=== PATIENT | male | born 1990 | race African-American/Black ===

== ENCOUNTER 2016-10-08 13:29 | Emergency (ER) | payer MEDICAID ==
--- NOTE | 2016-10-08 13:47 | ER Document Report ---
ED Medical Screen (RME) - General Chief Complaint: Abdominal Pain Stated Complaint: ABDOMINAL PAIN Time Seen by Provider: 10/08/16 13:45 Notes: Patient states that he has 2 weeks of continuous bilateral flank and abdominal pains. He states he is having blood in his urine, blood in his vomit, and blood in his stool. He states that he is concerned this may be secondary to drinking too much alcohol. He states he has been drinking a pint of vodka a day for the last 7 years. Denies any chronic medical problems or previous surgeries. TRAVEL OUTSIDE OF THE [place] IN LAST 30 DAYS: No - Related Data Allergies/Adverse Reactions: No Known Allergies Allergy (Verified 10/08/16 13:34) Past Medical History Pulmonary Medical History: Reports: Hx Asthma Renal/ Medical History: Denies: Hx Peritoneal Dialysis - Immunizations Hx Diphtheria, Pertussis, Tetanus Vaccination: Yes
[2016-10-08 14:42] LABS: ABSOLUTE EOSINOPHILS # (AUTO) 0.1 10^3/uL (0.0-0.6); ABSOLUTE LYMPHOCYTES (AUTO) 0.8 10^3/uL (0.5-4.7); ABSOLUTE MONOCYTES (AUTO) 0.5 10^3/uL (0.1-1.4); ABSOLUTE NEUT (AUTO) 3.8 10^3/uL (1.7-8.2); BASOPHILS % (AUTO) 0.7 % (0-2); EOSINOPHILS % (AUTO) 2.5 % (0-6); HEMATOCRIT 42.2 % (37.9-51.0); HEMOGLOBIN 14.5 g/dL (13.5-17.0); HGB HCT DIFFERENCE 1.3; LYMPHOCYTES % (AUTO) 14.7 % (13-45); MEAN CORPUSCULAR HEMOGLOBIN 31.1 pg (27.0-33.4); MEAN CORPUSCULAR HGB CONC 34.4 g/dL (32.0-36.0); MEAN CORPUSCULAR VOLUME 90 fl (80-97); MONOCYTES % (AUTO) 10.1 % (3-13); RED BLOOD COUNT 4.67 10^6/uL (4.35-5.55); WHITE BLOOD COUNT 5.3 10^3/uL (4.0-10.5)
[2016-10-08] MEDS: NORMAL SALINE 1000 ML 1,000 ML IV PRN ×2 (14:44→15:09)
[2016-10-08 14:50] LABS: APPEARANCE,URINE CLEAR; BILIRUBIN,URINE NEGATIVE (NEGATIVE); GLUCOSE, URINE NEGATIVE (NEGATIVE); KETONES,URINE TRACE mg/dL (NEGATIVE); LEUKOCYTE ESTERASE,URINE NEGATIVE (NEGATIVE); NITRITE,URINE NEGATIVE (NEGATIVE); PROTEIN,URINE 30 mg/dL (NEGATIVE); URINE SPECIFIC GRAVITY 1.027
[2016-10-08] MEDS ORDERED: MORPHINE SULFATE 10 MG/ML INJ IV ONE (14:59)
[2016-10-08] MEDS ORDERED: NORMAL SALINE 1000 ML 1,000 ML IV ONE ×2 (14:59→16:52)
[2016-10-08] MEDS ORDERED: ONDANSETRON 4 MG TAB.RAPDIS PO ONE (14:59)
--- NOTE | 2016-10-08 15:01 | ER Document Report ---
ED GI/ - General Chief Complaint: Abdominal Pain Stated Complaint: ABDOMINAL PAIN Time Seen by Provider: 10/08/16 13:45 Mode of Arrival: Medic Information source: Patient Notes: 26-year-old male complaining of upper abdominal pain and thoracic back pain since he started drinking a pint of vodka daily for 2 weeks. He has been an alcoholic in the past and gone to AA. He feels nauseated and had some vomiting of blood and blood in he stool. At this time due to pain. No hx pancreatitis or surgeries. No chronic medical problems. TRAVEL OUTSIDE OF THE [place] IN LAST 30 DAYS: No - Related Data Allergies/Adverse Reactions: No Known Allergies Allergy (Verified 10/08/16 13:34) Past Medical History - General Information source: Patient - Social History Smoking Status: Current Every Day Smoker Frequency of alcohol use: Heavy - for 2 weeks Drug Abuse: None Occupation: [employer] Lives with: Family Family History: Reviewed & Not Pertinent Patient has suicidal ideation: No Patient has homicidal ideation: No Pulmonary Medical History: Reports: Hx Asthma Renal/ Medical History: Denies: Hx Peritoneal Dialysis Surgical Hx: Negative - Immunizations Hx Diphtheria, Pertussis, Tetanus Vaccination: Yes Review of Systems - Review of Systems Constitutional: No symptoms reported EENT: No symptoms reported Cardiovascular: No symptoms reported Respiratory: No symptoms reported Gastrointestinal: See HPI Genitourinary: No symptoms reported Male Genitourinary: No symptoms reported Musculoskeletal: No symptoms reported Skin: No symptoms reported Hematologic/Lymphatic: No symptoms reported Neurological/Psychological: No symptoms reported Physical Exam - Vital signs Vitals: Temp Pulse Resp BP Pulse Ox 98.3 F 89 16 124/91 H 99 10/08/16 13:34 10/08/16 13:34 10/08/16 13:34 10/08/16 13:34 10/08/16 13:34 Interpretation: Normal - General General appearance: Alert Notes: shaking due to the pain per the pt. - HEENT Head: Normocephalic, Atraumatic Eyes: Normal Conjunctiva: Normal Pupils: PERRL Mucous membranes: Dry Pharynx: Normal Neck: Supple. No: Lymphadenopathy - Respiratory Respiratory status: No respiratory distress Chest status: Nontender Breath sounds: Normal Chest palpation: Normal - Cardiovascular Rhythm: Regular Heart sounds: Normal auscultation Murmur: No - Abdominal Inspection: Normal Distension: No distension Bowel sounds: Normal Tenderness: Tender - upper abdomen, epigastric the most Organomegaly: No organomegaly. No: Hepatomegaly, Splenomegaly - Back Back: Normal, Nontender. No: Tender, CVA tenderness - Extremities General upper extremity: Normal inspection, Nontender, Normal color, Normal ROM , Normal temperature General lower extremity: Normal inspection, Nontender, Normal color, Normal ROM , Normal temperature, Normal weight bearing. No: Matthew's sign - Neurological Neuro grossly intact: Yes Cognition: Normal Orientation: AAOx4 Ester Coma Scale Eye Opening: Spontaneous [place] Coma Scale Verbal: Oriented [place] Coma Scale Motor: Obeys Commands [place] Coma Scale Total: 15 Speech: Normal Motor strength normal: LUE, RUE, LLE, RLE Sensory: Normal - Psychological Associated symptoms: Normal affect, Normal mood - Skin Skin Temperature: Warm Skin Moisture: Dry Skin Color: Normal Skin irregularity: negative: Rash Course - Re-evaluation Re-evalutation: 10/08/16 15:[address] cantu, get IV contrast CT, has pancreatitis, pain difficult to manage. Morphine 10mg only to 4/5. 10/08/16 15:33 pain down to 2/5 after dilaudid 0.5mg IV 10/08/16 16:23 CT scan is negative except for fatty infiltration of the liver I consulted with , go home with pain rx, nexium, f/u GI, no etoh. 10/08/16 16:23 drinking gingerale and eating crackers 10/08/16 16:34 no vomiting - Vital Signs Vital signs: Temp Pulse Resp BP Pulse Ox 98 F 75 16 137/89 H 98 10/08/16 15:40 10/08/16 15:40 10/08/16 15:40 10/08/16 15:40 10/08/16 15:40 - Laboratory Result Diagrams: 10/08/16 14:30 10/08/16 14:30 Laboratory results interpreted by me: 10/08/16 10/08/16 14:08 14:30 Total Bilirubin 1.9 H Direct Bilirubin 0.5 H AST 220 H Alkaline Phosphatase 146 H Lipase 892.0 H Urine Protein 30 H Urine Ketones TRACE H Urine Urobilinogen 4.0 H Discharge - Discharge Clinical Impression: Alcohol abuse, Dehydration Pancreatitis Qualifiers: Chronicity: acute Pancreatitis type: alcohol induced Acute pancreatitis complication: no infection or necrosis Qualified Code(s): K85.20 - Alcohol induced acute pancreatitis without necrosis or infection Vomiting Qualifiers: Vomiting type: unspecified Vomiting Intractability: non-intractable Nausea presence: with nausea Qualified Code(s): R11.2 - Nausea with vomiting, unspecified Abdominal pain Qualifiers: Abdominal location: upper abdomen, unspecified Qualified Code(s): R10.10 - Upper abdominal pain, unspecified Condition: Good Disposition: HOME, SELF-CARE Instructions: Abdominal Pain ([facility]), Pancreatitis ([facility]), Oral Narcotic Medication ([facility]), Antinausea Medication ([facility]), Prilosec (Acid Pump Inhibitor) ( [facility]) Additional Instructions: return to er for increased pain and vomiting despite the medication prescribed NO ALCOHOL CONSUMPTION eat frequent small meals, plenty of fluid see the parallel computing software engineer for folow up Please complete the patient satisfaction survey if you get one, and return it.. If you do not receive a survey, then you can go to the [facility] website, [email or web address] and place your comments about your very good care. Thank you very much. It was a pleasure being your medical provider today. Prescriptions: Hydrocodone Bit/Acetaminophen [Hydrocodon-Acetaminophen 5-325] 1 - 2 each PO Q4HP PRN #20 tablet PRN Reason: Promethazine HCl [Phenergan 25 mg Tablet] 25 mg PO Q4HP PRN #30 tablet PRN Reason: Esomeprazole Mag Trihydrate [Nexium] 40 mg PO DAILY #30 capsule.dr Referrals: DELORES GRIDER MD [ACTIVE STAFF] - Follow up in 3-5 days
[2016-10-08 15:05] LABS: URINE BARBITURATES SCREEN NEGATIVE; URINE METHADONE SCREEN NEGATIVE; URINE OPIATES LOW NEGATIVE; URINE PHENCYCLIDINE SCREEN NEGATIVE
[2016-10-08 15:06] LABS: ALANINE AMINOTRANSFERASE 70 U/L (21-72); ALBUMIN 4.6 g/dL (3.5-5.0); ALCOHOL 42 mg/dL (NONE DETECTED); ALKALINE PHOSPHATASE 146 U/L (38-126); ANION GAP 13 (5-19); ASPARTATE AMINO TRANSFERASE 220 U/L (17-59); BILIRUBIN,DIRECT 0.5 mg/dL (0.0-0.4); BILIRUBIN,TOTAL 1.9 mg/dL (0.2-1.3); BLOOD UREA NITROGEN 9 mg/dL (7-20); CALCIUM 9.4 mg/dL (8.4-10.2); CARBON DIOXIDE 26 mmol/L (22-30); CHLORIDE 100 mmol/L (98-107); CREATININE RESULT 0.97 mg/dL (0.52-1.25); GLUCOSE 77 mg/dL (75-110); POTASSIUM 3.9 mmol/L (3.6-5.0); SODIUM 139.4 mmol/L (137-145); TOTAL PROTEIN 8.2 g/dL (6.3-8.2)
[2016-10-08] MEDS ORDERED: HYDROMORPHONE HCL INJ/PF 2 MG/ML AMPULE IV ONE (15:18)
[2016-10-08] MEDS ORDERED: FAMOTIDINE INJ/PF 20 MG/2 ML SDV IV ONE (15:19)
--- NOTE | 2016-10-08 16:13 | RADIOLOGY REPORT (SQ) ---
EXAM DESCRIPTION: CT ABD/PELVIS WITH IV ONLY COMPLETED DATE/TIME: 10/08/2016 4:02 pm REASON FOR STUDY: pancreatitis, acute abd pain COMPARISON: None. TECHNIQUE: CT scan of the abdomen and pelvis performed using helical scanning technique with dynamic intravenous contrast injection. No oral contrast. Images reviewed with lung, soft tissue, and bone windows. Reconstructed coronal and sagittal MPR images reviewed. Delayed images for evaluation of the urinary system also acquired. All images stored on PACS. All CT scanners at this facility use dose modulation, iterative reconstruction, and/or weight based d osing when appropriate to reduce radiation dose to as low as reasonably achievable (ALARA). [facility]: Dose Right [facility]: CareDose [facility]: Dose Right [facility]: Teradose 4D [facility]: ReliSen CONTRAST TYPE AND DOSE: contrast/concentration: Isovue 370.00 mg/ml; Total Contrast Delivered: 85.0 ml; Total Saline Delivered: 69.0 ml RENAL FUNCTION: BUN 9 creatinine 0.97. RADIATION DOSE: Up-to-date CT equipment and radiation dose reduction techniques were employed. CTDIv ol: 4.0 - 4.6 mGy. DLP: 418 mGy-cm.. LIMITATIONS: None. FINDINGS: LOWER CHEST: No significant findings. No nodules or infiltrates. LIVER: Hepatomegaly, measuring 21 cm. Marked fatty infiltration. No masses. No dilated ducts. SPLEEN: Normal size. No focal lesions. PANCREAS: No masses. No significant calcifications. No adjacent inflammation or peripancreatic fluid collections. Pancreatic duct not dilated. GALLBLADDER: No identified stones by CT criteria. No inflammatory changes to suggest cholecystitis. ADRENAL GLANDS: No significant masses or asymmetry. RIGHT KIDNEY AND URETER: No solid masses. No significant calcifications. No hydronephrosis or hyd roureter. LEFT KIDNEY AND URETER: No solid masses. No significant calcifications. No hydronephrosis or hydr oureter. AORTA AND VESSELS: No aneurysm. No dissection. Renal arteries, SMA, celiac without stenosis. RETROPERITONEUM: No retroperitoneal adenopathy, hemorrhage or masses. BOWEL AND PERITONEAL CAVITY: No masses or inflammatory changes. No free fluid or peritoneal masses. APPENDIX: Normal. PELVIS: No mass. No free fluid. Normal bladder. ABDOMINAL WALL: No masses. No hernias. BONES: No significant or acute findings. OTHER: No other significant finding. IMPRESSION: HEPATOMEGALY WITH MARKED FATTY INFILTRATION OF THE LIVER. NO OTHER SIGNIFICANT OR ACUTE FINDING IN THE ABDOMEN OR PELVIS ON CT SCAN WITH IV CONTRAST. TECHNICAL DOCUMENTATION: JOB ID: [id number] Quality ID # [id number]: Final reports with documentation of one or more dose reduction techniques (e.g., Au tomated exposure control, adjustment of the mA and/or kV according to patient size, use of iterative reconstruction technique) 2010 [employer]- All Rights Reserved
[2016-10-08] MEDS ORDERED: LANSOPRAZOLE 30 MG TAB.RAP.DR PO ONE (16:23)
[2016-10-08] MEDS ORDERED: METOCLOPRAMIDE HCL INJ/PF 10 MG/2 ML SDV IV ONE (16:52)
[2016-10-08] MEDS ORDERED: METOCLOPRAMIDE HCL 10 MG TABLET PO ONE (16:57)
[2016-10-08 17:45] VITALS: BP 129/86
== END 2016-10-08 17:46 | disposition home or self-care (01) ==
LOC: ER 13:29
DX: K85.20 Alcohol induced acute pancreatitis without necrosis or infection (principal); F10.20 Alcohol dependence, uncomplicated; E86.0 Dehydration; K76.0 Fatty (change of) liver, not elsewhere classified; R10.10 Upper abdominal pain, unspecified; M54.6 Pain in thoracic spine; J45.909 Unspecified asthma, uncomplicated; F17.200 Nicotine dependence, unspecified, uncomplicated; K92.0 Hematemesis; K92.1 Melena
CPT/HCPCS: 99284; 96361; 96374; 96375; 36415; 80307 ×2; 83690; 85025; 80053; 81001; 74177; S0119; J3490; J2270; J1170; J7030; S0028

== ENCOUNTER 2016-12-03 12:31 | Emergency (ER) | payer MEDICAID ==
[2016-12-03] MEDS ORDERED: NORMAL SALINE 1000 ML 1,000 ML IV ONE (13:04)
[2016-12-03] MEDS ORDERED: PROCHLORPERAZINE EDISYLATE INJ 10 MG/2 ML VIAL IV ONE (13:04)
[2016-12-03 13:24] LABS: ALANINE AMINOTRANSFERASE 58 U/L (21-72); ALBUMIN 4.8 g/dL (3.5-5.0); ALKALINE PHOSPHATASE 118 U/L (38-126); ANION GAP 17 (5-19); ASPARTATE AMINO TRANSFERASE 175 U/L (17-59); BILIRUBIN,DIRECT 0.7 mg/dL (0.0-0.4); BILIRUBIN,TOTAL 2.2 mg/dL (0.2-1.3); BLOOD UREA NITROGEN 9 mg/dL (7-20); CARBON DIOXIDE 20 mmol/L (22-30); CHLORIDE 101 mmol/L (98-107); CREATININE RESULT 1.12 mg/dL (0.52-1.25); GLUCOSE 195 mg/dL (75-110); MAGNESIUM 1.6 mg/dL (1.6-2.3); POTASSIUM 4.1 mmol/L (3.6-5.0); SODIUM 137.8 mmol/L (137-145); TOTAL PROTEIN 8.4 g/dL (6.3-8.2)
[2016-12-03 13:28] LABS: ALCOHOL < 10 mg/dL (NONE DETECTED)
[2016-12-03 13:33] LABS: ABSOLUTE EOSINOPHILS # (AUTO) 0.1 10^3/uL (0.0-0.6); ABSOLUTE LYMPHOCYTES (AUTO) 0.6 10^3/uL (0.5-4.7); ABSOLUTE MONOCYTES (AUTO) 0.5 10^3/uL (0.1-1.4); ABSOLUTE NEUT (AUTO) 3.6 10^3/uL (1.7-8.2); BASOPHILS % (AUTO) 0.8 % (0-2); EOSINOPHILS % (AUTO) 1.5 % (0-6); HEMOGLOBIN 13.6 g/dL (13.5-17.0); HGB HCT DIFFERENCE 0.8; LYMPHOCYTES % (AUTO) 12.4 % (13-45); MEAN CORPUSCULAR HEMOGLOBIN 31.8 pg (27.0-33.4); MEAN CORPUSCULAR HGB CONC 34.1 g/dL (32.0-36.0); MEAN CORPUSCULAR VOLUME 93 fl (80-97); MONOCYTES % (AUTO) 10.6 % (3-13); RED BLOOD COUNT 4.28 10^6/uL (4.35-5.55); RED CELL DISTRIBUTION WIDTH 14.5 % (11.5-14.0); SEGMENTED NEUTROPHILS % (AUTO) 74.7 % (42-78); WHITE BLOOD COUNT 4.8 10^3/uL (4.0-10.5)
[2016-12-03 13:49] LABS: APPEARANCE,URINE CLEAR; BILIRUBIN,URINE NEGATIVE (NEGATIVE); GLUCOSE, URINE 150 mg/dL (NEGATIVE); KETONES,URINE 20 mg/dL (NEGATIVE); LEUKOCYTE ESTERASE,URINE NEGATIVE (NEGATIVE); NITRITE,URINE NEGATIVE (NEGATIVE); PROTEIN,URINE 30 mg/dL (NEGATIVE); URINE SPECIFIC GRAVITY 1.023
[2016-12-03 14:05] LABS: URINE BARBITURATES SCREEN NEGATIVE; URINE METHADONE SCREEN NEGATIVE; URINE OPIATES LOW NEGATIVE; URINE PHENCYCLIDINE SCREEN NEGATIVE
[2016-12-03] MEDS ORDERED: LEVETIRACETAM 500 MG TABLET PO ONE (14:25)
--- NOTE | 2016-12-03 14:25 | ER Document Report ---
ED Seizure - General Chief Complaint: Probable Seizure Stated Complaint: POSSIBLE SEIZURE Time Seen by Provider: 12/03/16 13:03 Mode of Arrival: Medic Information source: Patient Notes: Patient is a 26-year-old male with history of seizures, seizure medication the EMS saw at home, who presents to the ER today for seizure this morning while he was in court. Patient was witnessed to have fallen backwards, and had full body convulsions for approximately 5 minutes off and on, resting and then having another episode of seizure-like activity for approximately 2 minutes. Female friend in room was witnessed and states that the second time he was more tense than having convulsions but still had twitching of his legs. He did not have any loss of bladder function or foaming at the mouth. He did not bite his tongue. He drinks alcohol daily, 5-7 shots every day and at least a pint of alcohol on the weekends daily. He initially had a headache on arrival but on my exam states that he does not have a headache any longer. Witness states that he was "out of it" until he got to the emergency department. She states he is now at his baseline. - Related Data Allergies/Adverse Reactions: No Known Allergies Allergy (Verified 10/08/16 13:34) Past Medical History - General Information source: Patient - Social History Smoking Status: Unknown if Ever Smoked Family History: Reviewed & Not Pertinent Pulmonary Medical History: Reports: Hx Asthma Renal/ Medical History: Denies: Hx Peritoneal Dialysis - Immunizations Hx Diphtheria, Pertussis, Tetanus Vaccination: Yes Review of Systems - Review of Systems Constitutional: No symptoms reported EENT: No symptoms reported Cardiovascular: No symptoms reported Respiratory: No symptoms reported Gastrointestinal: No symptoms reported Genitourinary: No symptoms reported Male Genitourinary: No symptoms reported Musculoskeletal: No symptoms reported Skin: No symptoms reported Hematologic/Lymphatic: No symptoms reported Neurological/Psychological: See HPI Physical Exam - Notes Notes: PHYSICAL EXAMINATION: GENERAL: Appears tired, but in no acute distress. HEAD: Atraumatic, normocephalic. EYES: Pupils equal round and reactive to light, extraocular movements intact, sclera anicteric, conjunctiva are normal. ENT: ear canals without erythema or foreign body, TMs pearly ba with good bony landmarks, nares patent, oropharynx clear without exudates. Moist mucous membranes. No abrasion or lacerations to the oral mucosa or tongue NECK: Normal range of motion, supple without lymphadenopathy LUNGS: CTAB and equal. No wheezes rales or rhonchi. HEART: Regular rate and rhythm without murmurs ABDOMEN: Soft, no tenderness. No guarding, no rebound BACK: no vertebral tenderness, normal ROM GI/: no CVA tenderness EXTREMITIES: Normal range of motion, no pitting edema. No cyanosis. NEUROLOGICAL: Cranial nerves grossly intact. Normal sensory/motor exams. Good and equal strength bilaterally, Kernig and Brudzinski's signs negative, Romberg' s test normal, normal heel to lino testing PSYCH: Normal mood, normal affect. SKIN: Warm, Dry, normal turgor, no rashes or lesions noted Course - Re-evaluation Re-evalutation: 12/03/16 14:22 Patient states that he has no history of seizures, however female friend in the room states that he does and EMS saw seizure medications and his name at the house. Patient does have a psych history. Lab work is unremarkable today except for elevated bilirubin and liver enzymes, I did advise the patient stop drinking and advised him about his elevated liver enzymes which she has had before. They actually appear better than last month when he was here. He was given IV fluids here. He would like to go home at this time. - Laboratory Result Diagrams: 12/03/16 12:50 12/03/16 12:50 Laboratory results interpreted by me: 12/03/16 12/03/16 12/03/16 12:50 12:50 13:30 RBC 4.28 L RDW 14.5 H Lymphocytes % 12.4 L Carbon Dioxide 20 L Glucose 195 H Total Bilirubin 2.2 H Direct Bilirubin 0.7 H AST 175 H Total Protein 8.4 H Urine Protein 30 H Urine Glucose (UA) 150 H Urine Ketones 20 H Urine Blood SMALL H Urine Urobilinogen 2.0 H Discharge - Discharge Clinical Impression: Seizure Condition: Stable Disposition: HOME, SELF-CARE Additional Instructions: Pleast take your seizure medications, see neurology I have referred you to. Return immediately for any new or worsening symptoms. Follow up with primary care provider, call tomorrow to make followup appointment. Prescriptions: Levetiracetam [Keppra 500 mg Tablet] 500 mg PO Q12 #30 tablet Referrals: IHSAN VERA MD [Primary Care Provider] - Follow up as needed SONIYA KHAN MD [ACTIVE STAFF] - Follow up as needed
[2016-12-03 15:36] VITALS: BP 129/96
--- NOTE | 2016-12-03 16:46 | EKG REPORT ---
SEVERITY:- NORMAL ECG - SINUS RHYTHM : Confirmed by: Barbi Mandujano MD 03-Dec-2016 16:45:38
== END 2016-12-03 14:15 | disposition home or self-care (01) ==
LOC: ER 12:31
DX: G40.909 Epilepsy, unspecified, not intractable, without status epilepticus (principal)
CPT/HCPCS: 93005; 99284; 96374; 36415; 82962; 80307 ×2; 83735; 85025; 80053; 81001; 93010; J0780; J7030

== ENCOUNTER 2016-12-23 15:59 | Emergency (ER) | payer MEDICAID ==
--- NOTE | 2016-12-23 16:54 | ER Document Report ---
ED Medical Screen (RME) - General Chief Complaint: Abdominal Pain Stated Complaint: ABDOMINAL PAIN Time Seen by Provider: 12/23/16 16:53 Notes: Patient states that he was here 1 week ago for abdominal pain. He states abdominal pain has become worse. He is no vomiting and unable to eat. He denies any problems with urination or bowel movements. TRAVEL OUTSIDE OF THE [place] IN LAST 30 DAYS: No - Related Data Allergies/Adverse Reactions: No Known Allergies Allergy (Verified 12/23/16 16:08) Past Medical History Pulmonary Medical History: Reports: Hx Asthma Renal/ Medical History: Denies: Hx Peritoneal Dialysis - Immunizations Hx Diphtheria, Pertussis, Tetanus Vaccination: Yes Physical Exam - Vital signs Vitals: Temp Pulse Resp BP Pulse Ox 98.5 F 75 18 130/70 H 100 12/23/16 16:05 12/23/16 16:05 12/23/16 16:05 12/23/16 16:05 12/23/16 16:05 Course - Vital Signs Vital signs: Temp Pulse Resp BP Pulse Ox 98.5 F 75 18 130/70 H 100 12/23/16 16:05 12/23/16 16:05 12/23/16 16:05 12/23/16 16:05 12/23/16 16:05
[2016-12-23] MEDS ORDERED: NORMAL SALINE 1000 ML 1,000 ML IV ONE ×2 (16:56→23:19)
[2016-12-23] MEDS ORDERED: MORPHINE SULFATE 10 MG/ML INJ IV ONE ×2 (16:56→22:02)
[2016-12-23] MEDS ORDERED: ONDANSETRON HCL INJ/PF 4 MG/2 ML SDV IV ONE (16:56)
[2016-12-23 18:13] LABS: ABSOLUTE LYMPHOCYTES (AUTO) 0.8 10^3/uL (0.5-4.7); ABSOLUTE MONOCYTES (AUTO) 0.3 10^3/uL (0.1-1.4); ABSOLUTE NEUT (AUTO) 5.2 10^3/uL (1.7-8.2); BASOPHILS % (AUTO) 0.6 % (0-2); EOSINOPHILS % (AUTO) 0.7 % (0-6); HEMATOCRIT 41.9 % (37.9-51.0); HEMOGLOBIN 14.4 g/dL (13.5-17.0); HGB HCT DIFFERENCE 1.3; LYMPHOCYTES % (AUTO) 11.8 % (13-45); MEAN CORPUSCULAR HEMOGLOBIN 31.3 pg (27.0-33.4); MEAN CORPUSCULAR HGB CONC 34.3 g/dL (32.0-36.0); MEAN CORPUSCULAR VOLUME 91 fl (80-97); MONOCYTES % (AUTO) 5.2 % (3-13); RED BLOOD COUNT 4.59 10^6/uL (4.35-5.55); RED CELL DISTRIBUTION WIDTH 13.5 % (11.5-14.0); SEGMENTED NEUTROPHILS % (AUTO) 81.7 % (42-78); WHITE BLOOD COUNT 6.4 10^3/uL (4.0-10.5)
[2016-12-23 18:29] LABS: AMORPHOUS SEDIMENT,URINE TRACE /HPF; APPEARANCE,URINE CLOUDY; BILIRUBIN,URINE NEGATIVE (NEGATIVE); GLUCOSE, URINE NEGATIVE (NEGATIVE); KETONES,URINE TRACE mg/dL (NEGATIVE); LEUKOCYTE ESTERASE,URINE NEGATIVE (NEGATIVE); NITRITE,URINE NEGATIVE (NEGATIVE); PROTEIN,URINE 100 mg/dL (NEGATIVE); URINE SPECIFIC GRAVITY 1.026
[2016-12-23 18:42] LABS: ALANINE AMINOTRANSFERASE 60 U/L (21-72); ALBUMIN 4.8 g/dL (3.5-5.0); ALKALINE PHOSPHATASE 128 U/L (38-126); ANION GAP 15 (5-19); ASPARTATE AMINO TRANSFERASE 169 U/L (17-59); BILIRUBIN,DIRECT 0.9 mg/dL (0.0-0.4); BILIRUBIN,TOTAL 2.1 mg/dL (0.2-1.3); BLOOD UREA NITROGEN 10 mg/dL (7-20); CALCIUM 9.9 mg/dL (8.4-10.2); CARBON DIOXIDE 27 mmol/L (22-30); CHLORIDE 100 mmol/L (98-107); CREATININE RESULT 1.04 mg/dL (0.52-1.25); GLUCOSE 112 mg/dL (75-110); LIPASE 1447.8 U/L (23-300); POTASSIUM 3.8 mmol/L (3.6-5.0); SODIUM 142.4 mmol/L (137-145); TOTAL PROTEIN 8.6 g/dL (6.3-8.2)
--- NOTE | 2016-12-23 20:45 | RADIOLOGY REPORT (SQ) ---
EXAM DESCRIPTION: CT ABD/PELVIS WITH IV ONLY COMPLETED DATE/TIME: 12/23/2016 8:30 pm REASON FOR STUDY: pain COMPARISON: 10/08/2016 TECHNIQUE: CT scan of the abdomen and pelvis performed using helical scanning technique with dynamic intravenous contrast injection. No oral contrast. Images reviewed with lung, soft tissue, and bone windows. Reconstructed coronal and sagittal MPR images reviewed. Delayed images for evaluation of the urinary system also acquired. All images stored on PACS. All CT scanners at this facility use dose modulation, iterative reconstruction, and/or weight based d osing when appropriate to reduce radiation dose to as low as reasonably achievable (ALARA). [facility]: Dose Right [facility]: CareDose [facility]: Dose Right [facility]: Teradose 4D [facility]: Group 47 CONTRAST TYPE AND DOSE: contrast/concentration: Isovue 370.00 mg/ml; Total Contrast Delivered: 83.0 ml; Total Saline Delivered: 43.0 ml RENAL FUNCTION: Creatinine 1.04 RADIATION DOSE: Up-to-date CT equipment and radiation dose reduction techniques were employed. CTDIv ol: 5.3 - 6.8 mGy. DLP: 621 mGy-cm.. LIMITATIONS: None. FINDINGS: LOWER CHEST: No significant findings. No nodules or infiltrates. LIVER: Liver remains enlarged. There is heterogeneous density in the liver most consistent with area s of fatty infiltration and fatty sparing. The possibility of an infiltrative process cannot be comp letely excluded. SPLEEN: Normal size. No focal lesions. PANCREAS: No masses. No significant calcifications. No adjacent inflammation or peripancreatic fluid collections. Pancreatic duct not dilated. GALLBLADDER: No identified stones by CT criteria. No inflammatory changes to suggest cholecystitis. ADRENAL GLANDS: No significant masses or asymmetry. RIGHT KIDNEY AND URETER: No solid masses. No significant calcifications. No hydronephrosis or hyd roureter. LEFT KIDNEY AND URETER: No solid masses. No significant calcifications. No hydronephrosis or hydr oureter. AORTA AND VESSELS: No aneurysm. No dissection. Renal arteries, SMA, celiac without stenosis. RETROPERITONEUM: No retroperitoneal adenopathy, hemorrhage or masses. BOWEL AND PERITONEAL CAVITY: No masses or inflammatory changes. No free fluid or peritoneal masses. APPENDIX: Normal. PELVIS: No mass. Small amount of free fluid is identified in the pelvis. Normal bladder. ABDOMINAL WALL: No masses. No hernias. BONES: No significant or acute findings. OTHER: No other significant finding. IMPRESSION: The liver remains enlarged. There is diffuse heterogeneous density in the liver most co nsistent with areas of fatty infiltration and fatty sparing. The possibility of an infiltrative proc ess cannot be completely excluded. Small amount of free fluid is identified in the pelvis. Other fi ndings as noted above. TECHNICAL DOCUMENTATION: JOB ID: [id number] Quality ID # [id number]: Final reports with documentation of one or more dose reduction techniques (e.g., Au tomated exposure control, adjustment of the mA and/or kV according to patient size, use of iterative reconstruction technique) 2010 [employer]- All Rights Reserved
[2016-12-23 22:55] LABS: PROTHROMBIN TIME 13.2 SEC (11.4-15.4)
[2016-12-23] MEDS ORDERED: THIAMINE HCL 100 MG in NORMAL SALINE 50 ML IV ONE (23:18)
[2016-12-23] MEDS ORDERED: HYDROMORPHONE HCL INJ/PF 2 MG/ML AMPULE IV ONE (23:18)
[2016-12-23] MEDS ORDERED: FOLIC ACID INJ 5 MG/1 ML 10 ML VIAL IV ONE (23:18)
--- NOTE | 2016-12-23 23:20 | ER Document Report ---
ED General - General Chief Complaint: Abdominal Pain Stated Complaint: ABDOMINAL PAIN Time Seen by Provider: 12/23/16 16:53 Notes: Patient is a 26-year-old male presents with complaints of epigastric abdominal pain radiates to his back. He has had some vomiting. Pain is been there for 2 weeks. He is a chronic alcoholic. He says few days ago he certainly some streaks or spots of blood in his emesis. This continued through today. Some darker stools. No fevers. No history of this in the past. TRAVEL OUTSIDE OF THE [place] IN LAST 30 DAYS: No - Related Data Allergies/Adverse Reactions: No Known Allergies Allergy (Verified 12/23/16 16:08) Past Medical History - Social History Smoking Status: Unknown if Ever Smoked Frequency of alcohol use: Heavy Drug Abuse: None Family History: Reviewed & Not Pertinent Pulmonary Medical History: Reports: Hx Asthma Renal/ Medical History: Denies: Hx Peritoneal Dialysis - Immunizations Hx Diphtheria, Pertussis, Tetanus Vaccination: Yes Review of Systems - Review of Systems Notes: My Normal Review Basic REVIEW OF SYSTEMS: CONSTITUTIONAL : Denies fever, chills, or sweats. Denies recent illness. EENT: Denies eye, ear, throat, or mouth pain or symptoms. Denies nasal or sinus congestion. RESPIRATORY: Denies cough, cold, or chest congestion. Denies shortness of breath, difficulty breathing, or wheezing. GASTROINTESTINAL: Has abdominal pain. Vomiting. MUSCULOSKELETAL: Denies neck or back pain or joint pain or swelling. SKIN: Denies rash or skin lesions. NEUROLOGICAL: Denies altered mental status or loss of consciousness. Denies headache. Denies weakness or paralysis or loss of use of either side. Denies problems with gait or speech. Denies sensory or motor loss. ALL OTHER SYSTEMS REVIEWED AND NEGATIVE. Physical Exam - Vital signs Vitals: Temp Pulse Resp BP Pulse Ox 98.5 F 75 18 130/70 H 100 12/23/16 16:05 12/23/16 16:05 12/23/16 16:05 12/23/16 16:05 12/23/16 16:05 - Notes Notes: General Appearance: Well nourished, alert, cooperative, no acute distress, moderate obvious discomfort. Vitals: reviewed, See vital signs table. Head: no swelling or tenderness to the head Eyes: PERRL, EOMI, Conjuctiva clear Mouth: No decreasd moisture Lungs: No wheezing, No rales, No rhonci, No accessory muscle use, good air exchange bilaterally. Heart: Normal rate, Regular rythm, No murmur, no rub Abdomen: Normal BS, soft, No rigidity, epigastric abdominal tenderness palpation , No guarding, no rebound, no abdominal masses, Extremities: strength 5/5 in all extremities, good pulses in all extremities, no swelling or tenderness in the extremities, no edema. Skin: warm, dry, appropriate color, no rash Neuro: speech clear, oriented x 3, normal affect, responds appropriately to questions. Course - Re-evaluation Re-evalutation: 12/23/16 23:31 Vision is what appears to be pancreatitis with alcoholic gastritis. I did call and speak with the hospitalist, Dr. Quick, agrees with the patient. I will give the patient some Protonix. I have given pain medicine. I will place him on IV fluids. His hemoglobin is normal. His white blood cell count is normal. CT scan just shows changes in his liver consistent with chronic alcoholism. Patient agrees with plan for admission. Patient currently shows no signs of withdrawal. Dictation of this chart was performed using voice recognition software; therefore, there may be some unintended grammatical errors. - Vital Signs Vital signs: Temp Pulse Resp BP Pulse Ox 98.5 F 75 18 130/70 H 100 12/23/16 16:05 12/23/16 16:05 12/23/16 16:05 12/23/16 16:05 12/23/16 16:05 - Laboratory Result Diagrams: 12/23/16 17:45 12/23/16 17:45 Laboratory results interpreted by me: 12/23/16 12/23/16 12/23/16 17:45 17:45 17:49 Seg Neutrophils % 81.7 H Lymphocytes % 11.8 L Glucose 112 H Total Bilirubin 2.1 H Direct Bilirubin 0.9 H AST 169 H Alkaline Phosphatase 128 H Total Protein 8.6 H Lipase 1447.8 H Urine Protein 100 H Urine Ketones TRACE H Urine Urobilinogen 2.0 H Discharge - Discharge Clinical Impression: Pancreatitis Qualifiers: Chronicity: acute Pancreatitis type: alcohol induced Acute pancreatitis complication: no infection or necrosis Qualified Code(s): K85.20 - Alcohol induced acute pancreatitis without necrosis or infection Alcoholic gastritis Qualifiers: Chronicity: acute Gastritis bleeding: presence of bleeding unspecified Qualified Code(s): K29.20 - Alcoholic gastritis without bleeding Condition: Stable Disposition: ADMITTED OBSERVATION Admitting Provider: Hospitalist Unit Admitted: Telemetry
[2016-12-23] MEDS ORDERED: ONDANSETRON HCL INJ/PF 4 MG/2 ML SDV IV PRN (23:24)
[2016-12-23] MEDS ORDERED: IPRATROPIUM/ALBUTEROL 0.5-2.5 MG/3 ML AMPUL NEB PRN (23:24)
[2016-12-23] MEDS ORDERED: ACETAMINOPHEN 325 MG TABLET PO PRN (23:24)
[2016-12-23] MEDS ORDERED: PANTOPRAZOLE SODIUM 40 MG VIAL IV ONE ×2 (23:24→23:45)
[2016-12-23] MEDS ORDERED: PANTOPRAZOLE SODIUM 40 MG VIAL IV PRN (23:24)
[2016-12-23] MEDS ORDERED: LORAZEPAM INJ 2 MG/1 ML VIAL IV PRN (23:28)
[2016-12-23] MEDS ORDERED: NORMAL SALINE 1000 ML 1,000 ML IV SCH (23:30)
[2016-12-23] MEDS ORDERED: THIAMINE HCL 100 MG, FOLIC ACID 1 MG in NORMAL SALINE 250 ML IV SCH ×2 (23:30→23:45)
[2016-12-23] MEDS ORDERED: KETOROLAC TROMETHAMINE INJ/PF 30 MG/1 ML SDV IV PRN (23:32)
[2016-12-23] MEDS ORDERED: NORMAL SALINE 100 ML with PANTOPRAZOLE SODIUM 80 MG IV PRN ×2 (23:45)
[2016-12-23] MEDS ORDERED: PANTOPRAZOLE SODIUM 80 MG in NORMAL SALINE 100 ML IV ONE (23:45)
[2016-12-23] MEDS ORDERED: THIAMINE HCL INJ 200 MG/2 ML VIAL IV PRN (23:46)
[2016-12-23] MEDS ORDERED: FOLIC ACID INJ 5 MG/1 ML 10 ML VIAL IV PRN (23:47)
[2016-12-24] MEDS ORDERED: GABAPENTIN 400 MG CAPSULE PO ONE (00:26)
[2016-12-24 00:42] VITALS: BP 131/84
[2016-12-24] MEDS ORDERED: HEPARIN SOD (PORCINE) 5,000 UNIT/ML 1 ML SYRINGE SUBCUT SCH (06:00)
== END 2016-12-24 00:42 | disposition admitted as inpatient to this hospital (09) ==
LOC: ER 15:59 → UNDOADMOB 23:21 → EH 23:21 → OBSVTOIN 23:24 → INTOOBSV 23:24 → ER 12-24 00:42
DX: K85.20 Alcohol induced acute pancreatitis without necrosis or infection (principal); K29.20 Alcoholic gastritis without bleeding; F10.20 Alcohol dependence, uncomplicated; R10.13 Epigastric pain; K92.0 Hematemesis
CPT/HCPCS: 96376; 99285; 96361; 96374; 96375; 36415; 83690; 85025; 85610; 80053; 81001; 74177; J3490; J2270; J2405; J7030

== ENCOUNTER 2017-02-28 20:24 | Inpatient (IN) | payer MEDICAID ==
[2017-02-28] MEDS ORDERED: ONDANSETRON HCL INJ/PF 4 MG/2 ML SDV IV ONE (20:52)
[2017-02-28] MEDS ORDERED: RINGERS SOLUTION,LACTATED 1,000 ML IV ONE (20:52)
[2017-02-28] MEDS ORDERED: HYDROMORPHONE HCL INJ/PF 2 MG/ML AMPULE IV ONE ×2 (20:52→22:12)
--- NOTE | 2017-02-28 21:08 | ER Document Report ---
ED Medical Screen (RME) - General Mode of Arrival: Ambulatory Information source: Patient TRAVEL OUTSIDE OF THE [place] IN LAST 30 DAYS: No - General Chief Complaint: Abdominal Pain Stated Complaint: ABDOMINAL PAIN Time Seen by Provider: 02/28/17 20:47 Notes: Patient is a 27 year old male presenting to the emergency department with girlfriend complaining of abdominal pain and vomiting. At bedside patient is laying on the floor, not speaking with the patient indicating that it hurts to sit up or speak. Girlfriend states that he has had abdominal pain for 3 months. Patient describes his vomit as black ground up coffee beans. Girlfriend states patient drank heavily yesterday and had half of a mixed drink today. I have greeted and performed a rapid initial assessment of this patient. A comprehensive ED assessment and evaluation of the patient, analysis of test results and completion of the medical decision making process will be conducted by additional ED providers. (SUSAN ARMENDARIZ) - Related Data Allergies/Adverse Reactions: No Known Allergies Allergy (Verified 12/23/16 16:08) Past Medical History - Social History Chew tobacco use (# tins/day): No Frequency of alcohol use: Occasional Drug Abuse: None Pulmonary Medical History: Reports: Hx Asthma Renal/ Medical History: Denies: Hx Peritoneal Dialysis - Immunizations Hx Diphtheria, Pertussis, Tetanus Vaccination: Yes Physical Exam - Vital signs Vitals: Temp Pulse Resp BP Pulse Ox 98.5 F 75 20 116/95 H 100 02/28/17 20:32 02/28/17 20:32 02/28/17 20:32 02/28/17 20:32 02/28/17 20:32 - Notes Notes: GENERAL: Alert. Patient is lying on the floor when approached. Patient will not speak stating that it hurts his abdomen to do so. When asked to sit in chair patient is able to follow command. LUNGS: Clear to auscultation bilaterally, no wheezes, rales, or rhonchi. No respiratory distress. HEART: Regular rate and rhythm. No murmurs, gallops, or rubs. ABDOMEN: Soft, patient is diffusely tender to palpation, more so across epigastric area. Non-distended. Bowel sounds present in all 4 quadrants. ( SUSAN ARMENDARIZ) Course - Re-evaluation Re-evalutation: 02/28/17 21:16 States he has no knowledge of a history of pancreatitis or gastritis despite the fact that review of past medical history reveals history of pancreatitis. ( MONIE BENNETT) - Vital Signs Vital signs: Temp Pulse Resp BP Pulse Ox 98.5 F 75 20 116/95 H 100 02/28/17 20:32 02/28/17 20:32 02/28/17 20:32 02/28/17 20:32 02/28/17 20:32 Scribe Documentation - Scribe Written by Harmony:: Harmony Giron, 02/28/2017 21:13 acting as scribe for :: Joan
[2017-02-28] MEDS ORDERED: PANTOPRAZOLE SODIUM 40 MG VIAL IV ONE (21:36)
[2017-02-28] MEDS ORDERED: METOCLOPRAMIDE HCL ORAL SOLN 10 MG/10 ML UDCUP PO ONE (21:36)
[2017-02-28] MEDS ORDERED: MAG HYDROX/AL HYDROX/SIMETH SUSP 30 ML UDCUP PO ONE (21:36)
[2017-02-28] MEDS ORDERED: LIDOCAINE 2% VISCOUS SOLN 20 ML UDCUP PO ONE (21:36)
[2017-02-28 21:54] LABS: ABSOLUTE BASOPHILS # (AUTO) 0.1 10^3/uL (0.0-0.2); ABSOLUTE LYMPHOCYTES (AUTO) 0.8 10^3/uL (0.5-4.7); ABSOLUTE MONOCYTES (AUTO) 0.4 10^3/uL (0.1-1.4); ABSOLUTE NEUT (AUTO) 3.5 10^3/uL (1.7-8.2); BASOPHILS % (AUTO) 1.1 % (0-2); EOSINOPHILS % (AUTO) 0.8 % (0-6); HEMATOCRIT 37.7 % (37.9-51.0); HEMOGLOBIN 12.7 g/dL (13.5-17.0); LYMPHOCYTES % (AUTO) 16.4 % (13-45); MEAN CORPUSCULAR HEMOGLOBIN 31.2 pg (27.0-33.4); MEAN CORPUSCULAR HGB CONC 33.8 g/dL (32.0-36.0); MEAN CORPUSCULAR VOLUME 92 fl (80-97); MONOCYTES % (AUTO) 9.3 % (3-13); PLATELET COUNT 282 10^3/uL (150-450); RED BLOOD COUNT 4.08 10^6/uL (4.35-5.55); RED CELL DISTRIBUTION WIDTH 15.8 % (11.5-14.0); SEGMENTED NEUTROPHILS % (AUTO) 72.4 % (42-78); TOTAL CELLS COUNTED % (AUTO) 100 %; WHITE BLOOD COUNT 4.8 10^3/uL (4.0-10.5)
[2017-02-28 21:56] LABS: ALANINE AMINOTRANSFERASE 48 U/L (21-72); ALBUMIN 3.8 g/dL (3.5-5.0); ALCOHOL 156 mg/dL (NONE DETECTED); ALKALINE PHOSPHATASE 107 U/L (38-126); ANION GAP 14 (5-19); ASPARTATE AMINO TRANSFERASE 154 U/L (17-59); BILIRUBIN,DIRECT 0.3 mg/dL (0.0-0.4); BLOOD UREA NITROGEN 9 mg/dL (7-20); CALCIUM 8.7 mg/dL (8.4-10.2); CARBON DIOXIDE 27 mmol/L (22-30); CHLORIDE 103 mmol/L (98-107); GLUCOSE 97 mg/dL (75-110); LIPASE 1555.9 U/L (23-300); POTASSIUM 3.8 mmol/L (3.6-5.0); TOTAL PROTEIN 6.9 g/dL (6.3-8.2)
--- NOTE | 2017-02-28 22:14 | ER Document Report ---
ED GI/ - General Chief Complaint: Abdominal Pain Stated Complaint: ABDOMINAL PAIN Time Seen by Provider: 02/28/17 20:47 Mode of Arrival: Ambulatory Notes: The patient is a 27-year-old male, chronic alcohol drinker, prior history of alcohol gastritis and pancreatitis, presents with 3 days of increasing epigastric abdominal pain is worse with eating. Patient had similar symptoms about 3 months ago when he was diagnosed with pancreatitis. He said he had stopped drinking at that time, but started to drink this week because of the holidays. "I only had one drink today." He is also having nausea and said he vomited yesterday and thinks it looked like coffee grounds. He denies dark or bloody stools, chest pain, fevers, shortness of breath, urinary symptoms or headache. TRAVEL OUTSIDE OF THE [place] IN LAST 30 DAYS: No - Related Data Allergies/Adverse Reactions: No Known Allergies Allergy (Verified 12/23/16 16:08) Past Medical History - General Information source: Patient - Social History Smoking Status: Current Every Day Smoker Chew tobacco use (# tins/day): No Frequency of alcohol use: Heavy Drug Abuse: None Family History: Reviewed & Not Pertinent Patient has suicidal ideation: No Patient has homicidal ideation: No Pulmonary Medical History: Reports: Hx Asthma Renal/ Medical History: Denies: Hx Peritoneal Dialysis - Immunizations Hx Diphtheria, Pertussis, Tetanus Vaccination: Yes Review of Systems - Review of Systems Notes: REVIEW OF SYSTEMS: CONSTITUTIONAL: -fevers, -chills EENT: -eye pain, -difficulty swallowing, -nasal congestion CARDIOVASCULAR:-chest pain, -syncope. RESPIRATORY: -cough, -SOB GASTROINTESTINAL: +epigastric abdominal pain, +nausea, +vomiting, -diarrhea GENITOURINARY: -dysuria, -hematuria MUSCULOSKELETAL: -back pain, -neck pain SKIN: -rash or skin lesions. HEMATOLOGIC: -easy bruising or bleeding. LYMPHATIC: -swollen, enlarged glands. NEUROLOGICAL: -altered mental status or loss of consciousness, -headache, - neurologic symptoms PSYCHIATRIC: -anxiety, -depression. ALL OTHER SYSTEMS REVIEWED AND NEGATIVE. Physical Exam - Vital signs Vitals: Temp Pulse Resp BP Pulse Ox 98.5 F 75 20 116/95 H 100 02/28/17 20:32 02/28/17 20:32 02/28/17 20:32 02/28/17 20:32 02/28/17 20:32 - Notes Notes: PHYSICAL EXAMINATION: GENERAL: Uncomfortable. HEAD: Atraumatic, normocephalic. EYES: Pupils equal round and reactive to light, extraocular movements intact, sclera anicteric, conjunctiva are normal. ENT: nares patent, oropharynx clear without exudates. Moist mucous membranes. NECK: Normal range of motion, supple without lymphadenopathy LUNGS: Breath sounds clear to auscultation bilaterally and equal. No wheezes rales or rhonchi. HEART: Regular rate and rhythm without murmurs ABDOMEN: Soft, moderate epigastric tenderness, normoactive bowel sounds. No guarding, no rebound. No masses appreciated. EXTREMITIES: Normal range of motion, no pitting or edema. No cyanosis. NEUROLOGICAL: Cranial nerves grossly intact. Normal speech, normal gait. Normal sensory and motor exams. PSYCH: Normal mood, normal affect. SKIN: Warm, Dry, normal turgor, no rashes or lesions noted. Course - Re-evaluation Re-evalutation: Patient with evidence of acute pancreatitis, most likely from his increased alcohol use during the holidays. Once again, patient said he only had one drink today and when I told him about his alcohol level of 160, he said it may have been a big drink. Patient had a CT scan completed 3 months ago for the same exact symptoms, which did not show any complications with his pancreatitis. His bilirubin levels are normal, so I do not think that patient' s pancreatitis is induced by biliary disease at this time. H/H and BP normal, so massive upper GI bleed is unlikely at this time. Patient continues to have pain and nausea when he tries to eat and requires inpatient admission for IV fluids, antiemetics and pain control for his acute alcohol pancreatitis. 02/28/17 22:[address] Quick and will admit patient as inpatient to the medical floor for further evaluation and management of his pancreatitis. - Vital Signs Vital signs: Temp Pulse Resp BP Pulse Ox 98.5 F 75 20 116/95 H 100 02/28/17 20:32 02/28/17 20:32 02/28/17 20:32 02/28/17 20:32 02/28/17 20:32 - Laboratory Result Diagrams: 02/28/17 21:32 02/28/17 21:32 Laboratory results interpreted by me: 02/28/17 02/28/17 21:32 21:32 RBC 4.08 L Hgb 12.7 L Hct 37.7 L RDW 15.8 H AST 154 H Lipase 1555.9 H Discharge - Discharge Clinical Impression: Pancreatitis, alcoholic, acute Qualifiers: Acute pancreatitis complication: unspecified Qualified Code(s): K85.20 - Alcohol induced acute pancreatitis without necrosis or infection Condition: Stable Disposition: ADMITTED INPATIENT Admitting Provider: [facility] Unit Admitted: Medical Floor
[2017-02-28] MEDS ORDERED: PANTOPRAZOLE SODIUM 80 MG in NORMAL SALINE 100 ML IV ONE (22:33)
[2017-02-28] MEDS ORDERED: ONDANSETRON HCL INJ/PF 4 MG/2 ML SDV IV PRN (22:35)
[2017-02-28] MEDS ORDERED: SUCRALFATE SUSP 1 GM/10 ML UDCUP PO ONE (22:35)
[2017-02-28] MEDS ORDERED: PANTOPRAZOLE SODIUM 40 MG VIAL IV PRN (22:48)
[2017-02-28 23:11] LABS: INTERNATIONAL RATION (INR) 1.05; PROTHROMBIN TIME 14.4 SEC (11.4-15.4)
[2017-02-28] MEDS ORDERED: KETOROLAC TROMETHAMINE INJ/PF 30 MG/1 ML SDV IV PRN (23:41)
[2017-02-28] MEDS: NORMAL SALINE 100 ML with PANTOPRAZOLE SODIUM 80 MG IV PRN ×2 (23:46)
[2017-03-01] MEDS ORDERED: INFLUENZA ADLT QUAD (36MOS+) 2017-18 VAC 0.5 ML SYR IM PRN (00:33)
[2017-03-01] MEDS: HYDROMORPHONE HCL INJ/PF 2 MG/ML AMPULE SUBCUT PRN ×2 (02:24→06:21)
[2017-03-01 04:46] LABS: ABSOLUTE LYMPHOCYTES (AUTO) 0.5 10^3/uL (0.5-4.7); ABSOLUTE MONOCYTES (AUTO) 0.4 10^3/uL (0.1-1.4); ABSOLUTE NEUT (AUTO) 6.4 10^3/uL (1.7-8.2); BASOPHILS % (AUTO) 0.4 % (0-2); EOSINOPHILS % (AUTO) 0.1 % (0-6); HEMATOCRIT 39.2 % (37.9-51.0); HEMOGLOBIN 13.5 g/dL (13.5-17.0); LYMPHOCYTES % (AUTO) 7.4 % (13-45); MEAN CORPUSCULAR HEMOGLOBIN 31.2 pg (27.0-33.4); MEAN CORPUSCULAR HGB CONC 34.4 g/dL (32.0-36.0); MEAN CORPUSCULAR VOLUME 91 fl (80-97); MONOCYTES % (AUTO) 5.7 % (3-13); PLATELET COUNT 293 10^3/uL (150-450); RED BLOOD COUNT 4.32 10^6/uL (4.35-5.55); SEGMENTED NEUTROPHILS % (AUTO) 86.4 % (42-78); TOTAL CELLS COUNTED % (AUTO) 100 %; WHITE BLOOD COUNT 7.4 10^3/uL (4.0-10.5)
[2017-03-01] MEDS ORDERED: LORAZEPAM INJ 2 MG/1 ML VIAL ONE (06:15)
[2017-03-01] MEDS ORDERED: LORAZEPAM INJ 2 MG/1 ML VIAL IV ONE (06:30)
[2017-03-01] MEDS: LORAZEPAM INJ 2 MG/1 ML VIAL IV PRN ×8 (08:16→23:56)
[2017-03-01] MEDS: IPRATROPIUM/ALBUTEROL 0.5-2.5 MG/3 ML AMPUL NEB PRN (10:26)
[2017-03-01] MEDS: NORMAL SALINE 100 ML with PANTOPRAZOLE SODIUM 80 MG IV PRN ×2 (10:40)
--- NOTE | 2017-03-01 13:27 | PDOC PROGRESS REPORT ---
Subjective Progress Note for:: 03/01/17 Subjective:: Complains of upper abdominal pain Reason For Visit: ETOH PANCREATITIS AND GASTRITIS Physical Exam Vital Signs: Temp Pulse Resp BP Pulse Ox 97.8 F 109 H 15 133/95 H 96 03/01/17 11:35 03/01/17 11:35 03/01/17 11:35 03/01/17 11:35 03/01/17 11:35 Intake & Output 02/28/17 03/01/17 03/02/17 06:59 06:59 06:59 Intake Total 1060 Balance 1060 Weight 71.3 kg General appearance: PRESENT: no acute distress Eye exam: PRESENT: conjunctiva pink. ABSENT: scleral icterus Mouth exam: PRESENT: moist, tongue midline Neck exam: ABSENT: JVD Respiratory exam: PRESENT: clear to auscultation dax. ABSENT: rales, rhonchi, wheezes Cardiovascular exam: PRESENT: RRR. ABSENT: diastolic murmur, rubs, systolic murmur GI/Abdominal exam: PRESENT: normal bowel sounds, soft, tenderness - Left upper quadrant abdominal pain. No guarding or rebound.. ABSENT: distended, guarding , mass, organolmegaly, rebound Extremities exam: ABSENT: calf tenderness, clubbing, pedal edema Neurological exam: PRESENT: awake, oriented to person, oriented to place Psychiatric exam: PRESENT: appropriate affect Skin exam: PRESENT: dry, intact, warm. ABSENT: cyanosis, rash Results Laboratory Results: 03/01/17 04:38 03/01/17 04:38 WBC 7.4 RBC 4.32 L Hgb 13.5 Hct 39.2 MCV 91 MCH 31.2 MCHC 34.4 RDW 16.0 H Plt Count 293 Seg Neutrophils % 86.4 H Lymphocytes % 7.4 L Monocytes % 5.7 Eosinophils % 0.1 Basophils % 0.4 Absolute Neutrophils 6.4 Absolute Lymphocytes 0.5 Absolute Monocytes 0.4 Absolute Eosinophils 0.0 Absolute Basophils 0.0 Assessment & Plan - Diagnosis (1) Pancreatitis, alcoholic, acute Qualifiers: Acute pancreatitis complication: unspecified Qualified Code(s): K85.20 - Alcohol induced acute pancreatitis without necrosis or infection Is this a current diagnosis for this admission?: Yes Plan: Continue with n.p.o., IV fluids and IV pain medications. (2) Alcoholic gastritis Is this a current diagnosis for this admission?: Yes Plan: Continue with IV fluids. (3) Alcohol abuse Is this a current diagnosis for this admission?: Yes Plan: Continue with Ativan as needed. - Time Time Spent with patient: 25-34 minutes - Inpatient Certification Medical Necessity: Need Close Monitoring Due to Risk of Patient Decompensation, Need For IV Fluids, Need for Pain Control
[2017-03-01] MEDS ORDERED: ACETAMINOPHEN 325 MG TABLET PO PRN (23:33)
[2017-03-02] MEDS: NORMAL SALINE 100 ML with PANTOPRAZOLE SODIUM 80 MG IV PRN ×4 (00:32→11:11)
[2017-03-02] MEDS: LORAZEPAM INJ 2 MG/1 ML VIAL IV PRN ×4 (01:52→11:28)
[2017-03-02 05:02] LABS: ABSOLUTE EOSINOPHILS # (AUTO) 0.1 10^3/uL (0.0-0.6); ABSOLUTE MONOCYTES (AUTO) 0.4 10^3/uL (0.1-1.4); ABSOLUTE NEUT (AUTO) 7.2 10^3/uL (1.7-8.2); BASOPHILS % (AUTO) 0.3 % (0-2); EOSINOPHILS % (AUTO) 1.5 % (0-6); HEMATOCRIT 40.7 % (37.9-51.0); HEMOGLOBIN 13.8 g/dL (13.5-17.0); LYMPHOCYTES % (AUTO) 11.3 % (13-45); MEAN CORPUSCULAR HEMOGLOBIN 31.1 pg (27.0-33.4); MEAN CORPUSCULAR VOLUME 92 fl (80-97); MONOCYTES % (AUTO) 4.2 % (3-13); PLATELET COUNT 215 10^3/uL (150-450); RED BLOOD COUNT 4.44 10^6/uL (4.35-5.55); RED CELL DISTRIBUTION WIDTH 16.1 % (11.5-14.0); SEGMENTED NEUTROPHILS % (AUTO) 82.7 % (42-78); TOTAL CELLS COUNTED % (AUTO) 100 %; WHITE BLOOD COUNT 8.7 10^3/uL (4.0-10.5)
[2017-03-02 05:38] LABS: ANION GAP 13 (5-19); BLOOD UREA NITROGEN 8 mg/dL (7-20); CALCIUM 9.2 mg/dL (8.4-10.2); CARBON DIOXIDE 26 mmol/L (22-30); CHLORIDE 99 mmol/L (98-107); GLUCOSE 99 mg/dL (75-110); LIPASE 843.6 U/L (23-300); POTASSIUM 3.5 mmol/L (3.6-5.0); SODIUM 137.9 mmol/L (137-145)
[2017-03-02] MEDS ORDERED: POTASSI CL 20 MEQ/50 ML RIDER 20 MEQ/50 ML RTUPB IV ONE (07:28)
[2017-03-02] MEDS ORDERED: NORMAL SALINE 1000 ML 1,000 ML IV PRN (09:37)
[2017-03-02] MEDS: HYDROMORPHONE HCL INJ/PF 2 MG/ML AMPULE SUBCUT PRN (09:40)
--- NOTE | 2017-03-02 09:54 | PDOC PROGRESS REPORT ---
Subjective Progress Note for:: 03/02/17 Subjective:: Complains of upper abdominal pain Reason For Visit: ETOH PANCREATITIS AND GASTRITIS Physical Exam Vital Signs: Temp Pulse Resp BP Pulse Ox 100.0 F 138 H 20 138/59 H 100 03/02/17 08:00 03/02/17 08:00 03/02/17 08:00 03/02/17 08:00 03/02/17 08:00 Intake & Output 03/01/17 03/02/17 03/03/17 06:59 06:59 06:59 Intake Total 1060 1487 Balance 1060 1487 Weight 71.3 kg 72.2 kg General appearance: PRESENT: no acute distress Eye exam: PRESENT: conjunctiva pink. ABSENT: scleral icterus Mouth exam: PRESENT: moist, tongue midline Neck exam: ABSENT: JVD Respiratory exam: PRESENT: clear to auscultation dax. ABSENT: rales, rhonchi, wheezes Cardiovascular exam: PRESENT: RRR. ABSENT: diastolic murmur, rubs, systolic murmur GI/Abdominal exam: PRESENT: normal bowel sounds, soft, tenderness - Left upper quadrant. ABSENT: distended, guarding, mass, organolmegaly, rebound Extremities exam: ABSENT: calf tenderness, clubbing, pedal edema Neurological exam: PRESENT: alert, awake, oriented to person, oriented to place , CN II-XII grossly intact. ABSENT: oriented to time, oriented to situation, motor sensory deficit Psychiatric exam: PRESENT: flat affect Skin exam: PRESENT: dry, intact, warm. ABSENT: cyanosis, rash Results Laboratory Results: 03/02/17 03:58 03/02/17 03:58 03/02/17 03/02/17 03:58 03:58 WBC 8.7 RBC 4.44 Hgb 13.8 Hct 40.7 MCV 92 MCH 31.1 MCHC 34.0 RDW 16.1 H Plt Count 215 Seg Neutrophils % 82.7 H Lymphocytes % 11.3 L Monocytes % 4.2 Eosinophils % 1.5 Basophils % 0.3 Absolute Neutrophils 7.2 Absolute Lymphocytes 1.0 Absolute Monocytes 0.4 Absolute Eosinophils 0.1 Absolute Basophils 0.0 Sodium 137.9 Potassium 3.5 L Chloride 99 Carbon Dioxide 26 Anion Gap 13 BUN 8 Creatinine 0.90 Est GFR ( Amer) > 60 Est GFR (Non-Af Amer) > 60 Glucose 99 Calcium 9.2 Lipase 843.6 H Assessment & Plan - Diagnosis (1) Pancreatitis, alcoholic, acute Qualifiers: Acute pancreatitis complication: unspecified Qualified Code(s): K85.20 - Alcohol induced acute pancreatitis without necrosis or infection Is this a current diagnosis for this admission?: Yes Plan: Continue with n.p.o., IV fluids and IV pain medications. (2) Alcoholic gastritis Is this a current diagnosis for this admission?: Yes Plan: Continue with IV fluids. (3) Alcohol abuse Is this a current diagnosis for this admission?: Yes Plan: Continue with Ativan as needed. - Time Time Spent with patient: 25-34 minutes - Inpatient Certification Medical Necessity: Need for Pain Control, Need for IV Antibiotics
[2017-03-02] MEDS: IPRATROPIUM/ALBUTEROL 0.5-2.5 MG/3 ML AMPUL NEB PRN (10:10)
[2017-03-02 12:05] VITALS: BP 119/76
[2017-03-02] MEDS ORDERED: HALOPERIDOL LACTATE INJ 5 MG/1 ML VIAL ONE (12:16)
--- NOTE | 2017-03-02 13:42 | PDOC DISCHARGE SUMMARY ---
General - Admit/Disc Date/PCP Admission Date/Primary Care Provider: 02/28/17 22:34 Discharge Date: 03/02/17 - Discharge Diagnosis (1) Pancreatitis, alcoholic, acute Is this a current diagnosis for this admission?: Yes (2) Alcoholic gastritis Is this a current diagnosis for this admission?: Yes (3) Alcohol abuse Is this a current diagnosis for this admission?: Yes - Additional Information Home Medications: Omeprazole Magnesium [Prilosec Otc] 20 mg PO BID 03/01/17 Promethazine HCl [Phenergan 25 mg Tablet] 25 mg PO Q6HP PRN 03/01/17 History of Present Illness History of Present Illness: VANESSA OSBORNE is a 27 year old male with a history of alcohol abuse who presented with abdominal pain nausea and vomiting. Patient was found to have pancreatitis and probable alcoholic gastritis. Is admitted for IV fluids and pain control. Hospital Course Hospital Course: 27-year-old male admitted for alcoholic pancreatitis as well as probable alcoholic gastritis. Patient was made n.p.o. and given IV fluids as well as IV narcotics. He had improvement in his pain however he was still having pain on the day of discharge. He was alert and oriented and was felt to be competent to make decisions. He decided to leave AGAINST MEDICAL ADVICE. Physical Exam Vital Signs: Temp Pulse Resp BP Pulse Ox 98.9 F 122 H 20 119/76 100 03/02/17 12:00 03/02/17 12:00 03/02/17 12:00 03/02/17 12:00 03/02/17 12:00 Intake & Output 03/01/17 03/02/17 03/03/17 06:59 06:59 06:59 Intake Total 1060 1487 Balance 1060 1487 Weight 71.3 kg 72.2 kg General appearance: PRESENT: no acute distress Eye exam: PRESENT: conjunctiva pink. ABSENT: scleral icterus Respiratory exam: PRESENT: clear to auscultation dax. ABSENT: rales, rhonchi, wheezes Cardiovascular exam: PRESENT: RRR. ABSENT: diastolic murmur, rubs, systolic murmur GI/Abdominal exam: PRESENT: normal bowel sounds, soft, tenderness - Left upper quadrant tenderness. ABSENT: distended, guarding, mass, organolmegaly, rebound Results Laboratory Results: 03/02/17 03:58 03/02/17 03:58 03/02/17 03/02/17 03:58 03:58 WBC 8.7 RBC 4.44 Hgb 13.8 Hct 40.7 MCV 92 MCH 31.1 MCHC 34.0 RDW 16.1 H Plt Count 215 Seg Neutrophils % 82.7 H Lymphocytes % 11.3 L Monocytes % 4.2 Eosinophils % 1.5 Basophils % 0.3 Absolute Neutrophils 7.2 Absolute Lymphocytes 1.0 Absolute Monocytes 0.4 Absolute Eosinophils 0.1 Absolute Basophils 0.0 Sodium 137.9 Potassium 3.5 L Chloride 99 Carbon Dioxide 26 Anion Gap 13 BUN 8 Creatinine 0.90 Est GFR ( Amer) > 60 Est GFR (Non-Af Amer) > 60 Glucose 99 Calcium 9.2 Lipase 843.6 H Qualifiers PATEINT BEING DISCHARGED WITH ANY OF THE FOLLOWING DIAGNOSIS?: No Plan Discharge Plan: Patient left AGAINST MEDICAL ADVICE. Time Spent: Less than 30 Minutes
--- NOTE | 2017-03-07 08:36 | PDOC H&P ---
History of Present Illness Admission Date/PCP: 02/28/17 22:34 Patient complains of: Epigastric pain History of Present Illness: VANESSA OSBORNE is a 27 year old male with a history of alcohol abuse. He presents with 48 hours of epigastric pain and a single episode of coffee-ground emesis prompting evaluation emergency room where he is found to have a lipase of 1700. He is referred to the hospitalist for admission. Patient quantify his alcohol intake is 1 ounce over the last 24 hours he had serum alcohol results of 156. He admits several previous episodes of abdominal pain related to alcohol consumption. He denies black stools, fever chills, shortness of breath or palpitations. Past Medical History Pulmonary Medical History: Reports: Asthma Psychiatric Medical History: Reports: Alcohol Dependency Social History Information Source: Patient, Emergency Med Personnel, [facility] Records Smoking Status: Current Every Day Smoker Cigarettes Packs Per Day: 0.5 Frequency of Alcohol Use: Heavy - Advance Directive Resuscitation Status: Full Code Family History Family History: None Parental Family History Reviewed: Yes Children Family History Reviewed: Yes Sibling(s) Family History Reviewed.: Yes Medication/Allergy Home Medications: Omeprazole Magnesium [Prilosec Otc] 20 mg PO BID 03/01/17 Promethazine HCl [Phenergan 25 mg Tablet] 25 mg PO Q6HP PRN 03/01/17 Allergies/Adverse Reactions: No Known Allergies Allergy (Verified 12/23/16 16:08) Review of Systems ROS unobtainable: Due to mental status - Patient is intoxicated and felt an unreliable historian Physical Exam Vital Signs: Temp Pulse Resp BP Pulse Ox 98.9 F 122 H 20 119/76 100 03/02/17 12:00 03/02/17 12:00 03/02/17 12:00 03/02/17 12:00 03/02/17 12:00 General appearance: PRESENT: cooperative, mild distress, well-developed, well- nourished Head exam: PRESENT: atraumatic, normocephalic Eye exam: PRESENT: conjunctiva pink, EOMI, PERRLA. ABSENT: scleral icterus Ear exam: PRESENT: normal external ear exam Mouth exam: PRESENT: moist, tongue midline Neck exam: ABSENT: carotid bruit, JVD, lymphadenopathy, thyromegaly Respiratory exam: PRESENT: clear to auscultation dax. ABSENT: rales, rhonchi, wheezes Cardiovascular exam: PRESENT: bradycardia Pulses: PRESENT: normal dorsalis pedis pul Vascular exam: PRESENT: normal capillary refill GI/Abdominal exam: PRESENT: hyperactive bowel sounds, soft, tenderness. ABSENT : ascites, diminished bowel sounds, distended, firm, guarding, Harman's sign, rebound, rigid Rectal exam: PRESENT: deferred Extremities exam: PRESENT: full ROM. ABSENT: calf tenderness, clubbing, pedal edema Neurological exam: PRESENT: alert, altered, awake, oriented to person, oriented to place, oriented to time, oriented to situation, CN II-XII grossly intact. ABSENT: motor sensory deficit Psychiatric exam: PRESENT: anxious, normal mood. ABSENT: homicidal ideation, suicidal ideation Skin exam: PRESENT: dry, intact, warm. ABSENT: cyanosis, rash Results Laboratory Results: 03/02/17 03:58 03/02/17 03:58 Assessment & Plan - Diagnosis (1) Pancreatitis, alcoholic, acute Qualifiers: Acute pancreatitis complication: unspecified Qualified Code(s): K85.20 - Alcohol induced acute pancreatitis without necrosis or infection Is this a current diagnosis for this admission?: Yes Plan: Telemetry bed, bowel rest, IV fluid and electrolyte repletion symptomatic management and education (2) Alcohol abuse Is this a current diagnosis for this admission?: Yes Plan: Thiamine, folate and as needed Ativan ordered (3) Alcoholic gastritis Is this a current diagnosis for this admission?: Yes Plan: IV Protonix, evaluate coagulation, follow-up CBC, education consider GI consult - Time Time Spent: 30 to 50 Minutes - Inpatient Certification Medical Necessity: Need Close Monitoring Due to Risk of Patient Decompensation
== END 2017-03-02 11:55 | disposition left against medical advice (07) | DRG 440 ==
LOC: ER 20:24 → EH 22:34 → 5 03-01 00:19
PROVIDERS: ADMIT Internal Medicine; ATTEND Internal Medicine
DX: K85.20 Alcohol induced acute pancreatitis without necrosis or infection (principal); K29.20 Alcoholic gastritis without bleeding; F10.10 Alcohol abuse, uncomplicated; Z79.899 Other long term (current) drug therapy; F17.210 Nicotine dependence, cigarettes, uncomplicated
CPT/HCPCS: 36415; 80048; 80053; 80307; 83690; 85025; 85610; 94640; 96365; 96375; 96376; 99285; J1170; J2060; J2405; J3480; J3490; J7030; J7120; J7620; S0164

== ENCOUNTER 2017-05-25 12:15 | Emergency (ER) | payer MEDICAID ==
[2017-05-25 12:42] LABS: ABSOLUTE BASOPHILS # (AUTO) 0.1 10^3/uL (0.0-0.2); ABSOLUTE EOSINOPHILS # (AUTO) 0.2 10^3/uL (0.0-0.6); ABSOLUTE MONOCYTES (AUTO) 0.7 10^3/uL (0.1-1.4); ABSOLUTE NEUT (AUTO) 3.3 10^3/uL (1.7-8.2); EOSINOPHILS % (AUTO) 2.9 % (0-6); HEMATOCRIT 32.3 % (37.9-51.0); HEMOGLOBIN 10.6 g/dL (13.5-17.0); LYMPHOCYTES % (AUTO) 18.9 % (13-45); MEAN CORPUSCULAR HEMOGLOBIN 31.9 pg (27.0-33.4); MEAN CORPUSCULAR HGB CONC 32.9 g/dL (32.0-36.0); MEAN CORPUSCULAR VOLUME 97 fl (80-97); MONOCYTES % (AUTO) 13.4 % (3-13); PLATELET COUNT 162 10^3/uL (150-450); RED BLOOD COUNT 3.33 10^6/uL (4.35-5.55); RED CELL DISTRIBUTION WIDTH 16.1 % (11.5-14.0); SEGMENTED NEUTROPHILS % (AUTO) 63.8 % (42-78); TOTAL CELLS COUNTED % (AUTO) 100 %; WHITE BLOOD COUNT 5.2 10^3/uL (4.0-10.5)
[2017-05-25 12:47] LABS: PROTHROMBIN TIME 13.9 SEC (11.4-15.4)
[2017-05-25 12:48] LABS: ALANINE AMINOTRANSFERASE 132 U/L (21-72); ALBUMIN 4.5 g/dL (3.5-5.0); ALKALINE PHOSPHATASE 221 U/L (38-126); ANION GAP 16 (5-19); ASPARTATE AMINO TRANSFERASE 420 U/L (17-59); BILIRUBIN,DIRECT 2.6 mg/dL (0.0-0.4); BILIRUBIN,TOTAL 4.4 mg/dL (0.2-1.3); BLOOD UREA NITROGEN 11 mg/dL (7-20); CALCIUM 9.6 mg/dL (8.4-10.2); CARBON DIOXIDE 25 mmol/L (22-30); CHLORIDE 102 mmol/L (98-107); GLUCOSE 84 mg/dL (75-110); LIPASE 142.9 U/L (23-300); SODIUM 142.6 mmol/L (137-145); TOTAL PROTEIN 8.6 g/dL (6.3-8.2)
[2017-05-25 12:49] LABS: ALCOHOL < 10 mg/dL (NONE DETECTED)
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
[2017-05-25] MEDS ORDERED: POTASSIUM CHLORIDE 10 MEQ TABLET.SA PO ONE (13:50)
--- NOTE | 2017-05-25 14:03 | RADIOLOGY REPORT (SQ) ---
EXAM DESCRIPTION: CT HEAD WITHOUT COMPLETED DATE/TIME: 05/25/2017 1:38 pm REASON FOR STUDY: confusion COMPARISON: CT brain 11/04/2007, 11/03/2007 TECHNIQUE: Axial images acquired through the brain without intravenous contrast. Images reviewed wi th bone, brain and subdural windows. Images stored on PACS. All CT scanners at this facility use dose modulation, iterative reconstruction, and/or weight based d osing when appropriate to reduce radiation dose to as low as reasonably achievable (ALARA). [facility]: Dose Right [facility]: CareDose [facility]: Dose Right [facility]: Teradose 4D [facility]: Smart Miscota RADIATION DOSE: CT Rad equipment meets quality standard of care and radiation dose reduction techniq ues were employed. CTDIvol: 64.6 mGy. DLP: 1292 mGy-cm. mGy. LIMITATIONS: None. FINDINGS: VENTRICLES: Normal size and contour. CEREBRUM: No masses. No hemorrhage. No midline shift. No evidence for acute infarction. Normal gra y/white matter differentiation. No areas of low density in the white matter. CEREBELLUM: No masses. No hemorrhage. No alteration of density. No evidence for acute infarction. EXTRAAXIAL SPACES: No fluid collections. No masses. ORBITS AND GLOBE: No intra- or extraconal masses. Normal contour of globe without masses. CALVARIUM: No fracture. PARANASAL SINUSES: Old bilateral nasal bone fractures. Old medial wall ethmoid 8 fractures left side . No air-fluid levels in the paranasal sinuses worrisome for acute sinusitis. Mastoid air cells are clear. SOFT TISSUES: No mass or hematoma. OTHER: No other significant finding. IMPRESSION: No acute findings EVIDENCE OF ACUTE STROKE: NO. COMMENT: Quality ID # [id number]: Final reports with documentation of one or more dose reduction techniques (e.g., Automated exposure control, adjustment of the mA and/or kV according to patient size, use of iterative reconstruction technique) TECHNICAL DOCUMENTATION: JOB ID: [id number] [employer]- All Rights Reserved Reading location - IP/workstation name: [email or web address]
[2017-05-25 14:06] LABS: APPEARANCE,URINE SLIGHTLY-CLOUDY; BILIRUBIN,URINE NEGATIVE (NEGATIVE); COLOR,URINE AMBER; GLUCOSE, URINE NEGATIVE (NEGATIVE); KETONES,URINE TRACE mg/dL (NEGATIVE); LEUKOCYTE ESTERASE,URINE SMALL (NEGATIVE); NITRITE,URINE NEGATIVE (NEGATIVE); PROTEIN,URINE 30 mg/dL (NEGATIVE); URINE SPECIFIC GRAVITY 1.017
[2017-05-25 14:15] LABS: URINE AMPHETAMINES SCREEN NEGATIVE; URINE BARBITURATES SCREEN NEGATIVE; URINE BENZODIAZEPINES SCREEN UNCONFIRMED POSITIVE; URINE COCAINE SCREEN NEGATIVE; URINE MARIJUANA (THC) SCREEN NEGATIVE; URINE METHADONE SCREEN NEGATIVE; URINE PHENCYCLIDINE SCREEN NEGATIVE
[2017-05-25 15:00] VITALS: BP 116/80
[2017-05-25] MEDS ORDERED: LORAZEPAM INJ 2 MG/1 ML VIAL IV PRN (21:24)
[2017-05-25] MEDS ORDERED: METHYLPREDNISOLONE INJ 125 MG/2 ML SDV IV ONE (21:24)
[2017-05-25] MEDS ORDERED: ACETYLCYSTEINE INJ 6000 MG/30 ML IV ONE (21:25)
[2017-05-25] MEDS ORDERED: IPRATROPIUM/ALBUTEROL 0.5-2.5 MG/3 ML AMPUL NEB PRN (21:25)
[2017-05-25] MEDS ORDERED: MAG HYDROX/AL HYDROX/SIMETH SUSP 30 ML UDCUP PO PRN (21:25)
[2017-05-25] MEDS ORDERED: THIAMINE HCL 100 MG, FOLIC ACID 1 MG in NORMAL SALINE 250 ML IV ONE (22:00)
[2017-05-25] MEDS ORDERED: HEPARIN SOD (PORCINE) 5,000 UNIT/ML 1 ML SYRINGE SUBCUT SCH (22:00)
[2017-05-25 22:04] LABS: PHOSPHORUS 3.9 mg/dL (2.5-4.5)
[2017-05-26] MEDS ORDERED: PANTOPRAZOLE SODIUM 40 MG VIAL IV SCH (10:00)
[2017-05-26] MEDS ORDERED: THIAMINE HCL 100 MG, FOLIC ACID 1 MG in NORMAL SALINE 250 ML IV SCH (22:00)
== END 2017-05-25 15:00 ==
LOC: ER 12:15
DX: E87.6 Hypokalemia (principal); D64.9 Anemia, unspecified; R41.0 Disorientation, unspecified; J45.909 Unspecified asthma, uncomplicated
CPT/HCPCS: 36415; 70450; 80053; 80307; 81001; 82550; 83690; 83735; 84100; 85025; 85610; 87086; 99283

== ENCOUNTER 2017-05-25 18:39 | Inpatient (IN) | payer MEDICAID ==
[2017-05-25] MEDS ORDERED: NORMAL SALINE 1000 ML 1,000 ML IV ONE (21:14)
--- NOTE | 2017-05-25 21:21 | ER Document Report ---
ED General - General Chief Complaint: Abnormal Lab Results Stated Complaint: ABNORMAL LABS Time Seen by Provider: 05/25/17 20:47 Cannot obtain history due to: Altered mental status Notes: Patient is a 27-year-old male with a past medical history of alcohol dependency who presents from alf for the second time today with ongoing behavioral disturbances and agitation. Patient himself is completely disoriented, not able to provide any meaningful clinical history. at the bedside reports that the patient has had progressively worsening altered mental status over the last 2 days. TRAVEL OUTSIDE OF THE [place] IN LAST 30 DAYS: No - Related Data Allergies/Adverse Reactions: No Known Allergies Allergy (Verified 05/25/17 18:44) Past Medical History - General Information source: [facility] Records, Outside Facility Records - Social History Smoking Status: Current Some Day Smoker Frequency of alcohol use: Heavy Drug Abuse: Marijuana Lives with: Other - Nursing Home Family History: Reviewed & Not Pertinent Patient has suicidal ideation: No Patient has homicidal ideation: No Pulmonary Medical History: Reports: Hx Asthma Renal/ Medical History: Denies: Hx Peritoneal Dialysis GI Medical History: Reports: Hx Gastritis, Hx Pancreatitis Psychiatric Medical History: Reports: Hx Schizophrenia - Immunizations Hx Diphtheria, Pertussis, Tetanus Vaccination: Yes Review of Systems - Review of Systems -: Yes ROS unobtainable due to patient's medical condition Physical Exam - Vital signs Vitals: Temp Pulse Resp BP Pulse Ox 98.6 F 115 H 20 137/91 H 99 05/25/17 18:50 05/25/17 18:50 05/25/17 18:50 05/25/17 18:50 05/25/17 18:50 Interpretation: Tachycardic Notes: PHYSICAL EXAMINATION: GENERAL: Appears uncomfortable but no acute distress. Agitated. HEAD: Atraumatic, normocephalic. EYES: Pupils equal round and reactive to light, extraocular movements intact, sclera anicteric, conjunctiva are normal. ENT: nares patent, oropharynx clear without exudates. Mild dry mucous membranes. NECK: Normal range of motion, supple without lymphadenopathy LUNGS: Breath sounds clear to auscultation bilaterally and equal. No wheezes rales or rhonchi. HEART: Regular tachycardia without murmurs ABDOMEN: Soft, nontender, normoactive bowel sounds. No guarding, no rebound. No masses appreciated. EXTREMITIES: Normal range of motion, no pitting or edema. No cyanosis. NEUROLOGICAL: No focal neurological deficits. Moves all extremities spontaneously and on command. PSYCH: Appears to be responding to internal stimuli. Extremity agitated. Oriented only to person. Believes he is currently at home, the closing machine operator at the bedside is somebody in [facility] that his alf outfit is [email or web address] SKIN: Warm, Dry, normal turgor, no rashes or lesions noted. Course - Re-evaluation Re-evalutation: 05/25/17 21:18 Patient presents several hours after being discharged by the previous provider with concerns of abnormal behavior. He was sent back by the alf due to the persistent abnormal behaviors as well as hypokalemia. Patient's clinical presentation however is extremely consistent with acute delirium tremens. The patient cannot be in a nonmonitored setting as he is very high risk for decompensation and even with this pathology. I have contacted the hospitalist and requested admission and he agrees that the patient does require hospitalization. Will establish IV access, begin giving IV benzodiazepines and fluids. The patient's previous labs also demonstrate that he has an acute alcoholic hepatitis with a transaminitis and hyperbilirubinemia that is not a baseline for him. 05/26/17 00:27 Patient's labs have returned also showing hyperammonemia. He continues to be intimately agitated requiring doses of IV benzodiazepines. - Vital Signs Vital signs: Temp Pulse Resp BP Pulse Ox 98.6 F 115 H 17 125/95 H 100 05/25/17 18:50 05/25/17 18:50 05/26/17 00:01 05/25/17 23:01 05/25/17 23:01 - Laboratory Result Diagrams: 05/25/17 21:30 05/25/17 21:30 Laboratory results interpreted by me: 05/25/17 05/25/17 05/25/17 21:30 21:30 21:30 RBC 3.36 L Hgb 10.9 L Hct 32.4 L RDW 16.3 H Monocytes % 14.5 H Total Bilirubin 3.9 H Direct Bilirubin 2.6 H AST 354 H ALT 123 H Alkaline Phosphatase 202 H Ammonia 54.6 H Discharge - Discharge Clinical Impression: Delirium tremens, Hypokalemia, Dehydration Alcoholic hepatitis Qualifiers: Ascites presence: unspecified Qualified Code(s): K70.10 - Alcoholic hepatitis without ascites Condition: Fair Disposition: ADMITTED INPATIENT [facility] Unit Admitted: Telemetry
[2017-05-25 21:40] LABS: ABSOLUTE EOSINOPHILS # (AUTO) 0.3 10^3/uL (0.0-0.6); ABSOLUTE LYMPHOCYTES (AUTO) 1.2 10^3/uL (0.5-4.7); ABSOLUTE MONOCYTES (AUTO) 0.9 10^3/uL (0.1-1.4); ABSOLUTE NEUT (AUTO) 3.5 10^3/uL (1.7-8.2); BASOPHILS % (AUTO) 0.8 % (0-2); EOSINOPHILS % (AUTO) 4.8 % (0-6); HEMATOCRIT 32.4 % (37.9-51.0); HEMOGLOBIN 10.9 g/dL (13.5-17.0); LYMPHOCYTES % (AUTO) 20.2 % (13-45); MEAN CORPUSCULAR HEMOGLOBIN 32.4 pg (27.0-33.4); MEAN CORPUSCULAR HGB CONC 33.6 g/dL (32.0-36.0); MEAN CORPUSCULAR VOLUME 96 fl (80-97); MONOCYTES % (AUTO) 14.5 % (3-13); PLATELET COUNT 162 10^3/uL (150-450); RED BLOOD COUNT 3.36 10^6/uL (4.35-5.55); RED CELL DISTRIBUTION WIDTH 16.3 % (11.5-14.0); SEGMENTED NEUTROPHILS % (AUTO) 59.7 % (42-78); TOTAL CELLS COUNTED % (AUTO) 100 %; WHITE BLOOD COUNT 5.9 10^3/uL (4.0-10.5)
[2017-05-25] MEDS: DIAZEPAM INJ 10 MG/2 ML DISP.SYRIN IV PRN (21:40)
[2017-05-25 22:04] LABS: ALANINE AMINOTRANSFERASE 123 U/L (21-72); ALBUMIN 4.3 g/dL (3.5-5.0); ALKALINE PHOSPHATASE 202 U/L (38-126); ANION GAP 14 (5-19); ASPARTATE AMINO TRANSFERASE 354 U/L (17-59); BILIRUBIN,DIRECT 2.6 mg/dL (0.0-0.4); BILIRUBIN,TOTAL 3.9 mg/dL (0.2-1.3); BLOOD UREA NITROGEN 11 mg/dL (7-20); CALCIUM 9.8 mg/dL (8.4-10.2); CARBON DIOXIDE 23 mmol/L (22-30); CHLORIDE 103 mmol/L (98-107); GLUCOSE 86 mg/dL (75-110); POTASSIUM 3.6 mmol/L (3.6-5.0)
[2017-05-25] MEDS ORDERED: DIAZEPAM INJ 10 MG/2 ML DISP.SYRIN IV ONE (22:34)
[2017-05-25] MEDS ORDERED: MAG HYDROX/AL HYDROX/SIMETH SUSP 30 ML UDCUP PO PRN (23:11)
[2017-05-25] MEDS ORDERED: IPRATROPIUM/ALBUTEROL 0.5-2.5 MG/3 ML AMPUL NEB PRN (23:11)
[2017-05-25] MEDS ORDERED: NORMAL SALINE 1000 ML 1,000 ML IV PRN (23:15)
[2017-05-25] MEDS ORDERED: DEXTROSE 5% IV ONE (23:45)
[2017-05-25] MEDS ORDERED: ACETYLCYSTEINE INJ 6000 MG/30 ML IV PRN ×3 (23:45→23:48)
[2017-05-25] MEDS ORDERED: WATER IV ONE (23:45)
[2017-05-25] MEDS ORDERED: ACETYLCYSTEINE IV ONE (23:45)
[2017-05-26] MEDS: DIAZEPAM INJ 10 MG/2 ML DISP.SYRIN IV PRN (00:29)
[2017-05-26] MEDS ORDERED: DEXTROSE 5% IV ONE ×2 (00:45→05:45)
[2017-05-26] MEDS ORDERED: WATER IV ONE ×2 (00:45→05:45)
[2017-05-26] MEDS ORDERED: ACETYLCYSTEINE IV ONE ×2 (00:45→05:45)
[2017-05-26] MEDS ORDERED: LORAZEPAM INJ 2 MG/1 ML VIAL IV ONE (04:27)
--- NOTE | 2017-05-26 05:24 | PDOC H&P ---
History of Present Illness Admission Date/PCP: 05/25/17 22:07 Patient complains of: Altered mental status History of Present Illness: VANESSA OSBORNE is a 27 year old male with a past medical history of alcohol dependence and alcohol withdrawal delirium tremens. Patient presents in the custody of the [facility] after 48 hours of behavioral disturbance and agitation. In the emergency room he is found to have alcohol withdrawal DTs in addition to markedly elevated LFTs and total CK. He started on thiamine folate and Ativan referred to the hospitalist for admission. Patient is unable to provide history as he is delirious and agitated requiring sedation. That said he does deny pain. Past Medical History Cardiac Medical History: Reports: None Pulmonary Medical History: Reports: Asthma EENT Medical History: Reports: None Neurological Medical History: Reports: None Endocrine Medical History: Reports: None Renal/ Medical History: Reports: None Malignancy Medical History: Reports: None GI Medical History: Reports: Other - Alcoholic gastritis Musculoskeltal Medical History: Reports: None Skin Medical History: Reports: None Psychiatric Medical History: Reports: Alcohol Dependency Traumatic Medical History: Reports: None Hematology: Reports: None Infectious Medical History: Reports: None Past Surgical History Past Surgical History: Reports: None Social History Information Source: Patient Lives with: Other - Alf Smoking Status: Current Some Day Smoker Frequency of Alcohol Use: Heavy - Advance Directive Resuscitation Status: Full Code Family History Family History: None - Unobtainable Parental Family History Reviewed: No - Unobtainable Children Family History Reviewed: No - Unobtainable Sibling(s) Family History Reviewed.: No - Unobtainable Medication/Allergy Home Medications: Omeprazole Magnesium [Prilosec Otc] 20 mg PO BID 03/01/17 Promethazine HCl [Phenergan 25 mg Tablet] 25 mg PO Q6HP PRN 03/01/17 Potassium Chloride 20 meq PO DAILY #5 tablet.er 05/25/17 Allergies/Adverse Reactions: No Known Allergies Allergy (Verified 05/25/17 18:44) Review of Systems ROS unobtainable: Due to mental status - Unobtainable Physical Exam Vital Signs: Temp Pulse Resp BP Pulse Ox 98.6 F 115 H 17 125/95 H 100 05/25/17 18:50 05/25/17 18:50 05/26/17 00:01 05/25/17 23:01 05/25/17 23:01 Intake & Output 05/24/17 05/25/17 05/26/17 11:59 11:59 11:59 Weight 62.6 kg General appearance: PRESENT: disheveled, severe distress. ABSENT: cooperative Head exam: PRESENT: atraumatic, normocephalic Eye exam: PRESENT: conjunctiva pink, EOMI, PERRLA. ABSENT: scleral icterus Ear exam: PRESENT: normal external ear exam Mouth exam: PRESENT: moist, tongue midline Neck exam: ABSENT: carotid bruit, JVD, lymphadenopathy, thyromegaly Respiratory exam: PRESENT: clear to auscultation dax. ABSENT: rales, rhonchi, wheezes Cardiovascular exam: PRESENT: tachycardia. ABSENT: diastolic murmur, rubs, systolic murmur Pulses: PRESENT: normal dorsalis pedis pul Vascular exam: PRESENT: normal capillary refill GI/Abdominal exam: PRESENT: normal bowel sounds, soft. ABSENT: distended, guarding, mass, organolmegaly, rebound, tenderness Rectal exam: PRESENT: deferred Extremities exam: PRESENT: full ROM. ABSENT: calf tenderness, clubbing, pedal edema Neurological exam: PRESENT: alert, altered, awake, oriented to person, CN II- XII grossly intact. ABSENT: oriented to place, oriented to time, oriented to situation Psychiatric exam: PRESENT: agitated Skin exam: PRESENT: dry, intact, warm. ABSENT: cyanosis, rash Assessment & Plan - Diagnosis (1) Alcoholic hepatitis Qualifiers: Ascites presence: unspecified Qualified Code(s): K70.10 - Alcoholic hepatitis without ascites Is this a current diagnosis for this admission?: Yes Plan: Telemetry bed, acetylcysteine, prednisone 1 mg/kg, thiamine and folate. Follow- up LFTs (2) Rhabdomyolysis Is this a current diagnosis for this admission?: Yes Plan: IV fluid challenge follow-up chemistry optimize sedation (3) Delirium tremens Is this a current diagnosis for this admission?: Yes Plan: Currently requiring restraints, optimize benzodiazepine sedation, continue thiamine and folate (4) Hypokalemia Is this a current diagnosis for this admission?: Yes Plan: Replace and reevaluate potassium and magnesium (5) Alcoholic gastritis Is this a current diagnosis for this admission?: Yes Plan: IV Protonix ordered follow-up CBC. - Time Time Spent: 50 to 70 Minutes
[2017-05-26] MEDS: HEPARIN SOD (PORCINE) 5,000 UNIT/ML 1 ML SYRINGE SUBCUT SCH ×2 (06:50→13:18)
[2017-05-26] MEDS ORDERED: ACETYLCYSTEINE INJ 6000 MG/30 ML IV SCH (10:00)
[2017-05-26] MEDS: LORAZEPAM INJ 2 MG/1 ML VIAL IV PRN ×2 (10:56→13:17)
[2017-05-26] MEDS: DOCUSATE SODIUM 100 MG CAPSULE PO SCH ×2 (10:57→18:11)
[2017-05-26] MEDS: PANTOPRAZOLE SODIUM 40 MG VIAL IV SCH ×2 (10:57→21:27)
[2017-05-26] MEDS: PREDNISONE 20 MG TABLET PO SCH ×2 (10:57→18:11)
[2017-05-26] MEDS: THIAMINE HCL 100 MG, FOLIC ACID 1 MG in NORMAL SALINE 250 ML IV SCH (10:58)
--- NOTE | 2017-05-26 18:10 | PDOC PROGRESS REPORT ---
Subjective Progress Note for:: 05/26/17 Subjective:: The patient presented to the emergency department earlier today with altered sensorium. He was recently incarcerated. He has not had any alcohol in 72 hours. Once Ativan was given the patient became much more appropriate. He was able to be taken out of soft restraints. When I spoke to the patient he did tell me that his past medical history was only noteworthy for asthma. He denies his alcohol history and use. Reason For Visit: ALCOHOLIC HEPATITIS, D/TS, RHABDOMYOLYSIS Physical Exam Vital Signs: Temp Pulse Resp BP Pulse Ox 97.9 F 79 14 113/75 97 05/26/17 16:27 05/26/17 16:39 05/26/17 16:27 05/26/17 16:27 05/26/17 16:27 Intake & Output 05/25/17 05/26/17 05/27/17 06:59 06:59 06:59 Intake Total 610 Output Total 1200 Balance -590 Weight 62.6 kg Additional comments: The patient appears to be his stated age. He was not in any distress when I saw him. He knew his name. He knew where he was but he did not recall the events that occurred. He did recall being placed in restraints and starting to become agitated once the restraints were placed. His neurological exam is nonfocal. His lungs are clear to auscultation bilaterally. His cardiac exam is regular without murmurs gallops or rubs. The abdomen is soft flat and benign. Bowel sounds are present in the lower quadrants. He does not have any guarding or rebound noted and there are no hernias or masses present. The lower extremities do not demonstrate any edema. Skin is warm, dry and intact. The patient is not diaphoretic at this time. No acute skin lesions or rashes are noted in the visible skin areas. Results Laboratory Results: 05/26/17 06:10 Creatine Kinase 532 H Assessment & Plan - Diagnosis (1) Alcoholic hepatitis Qualifiers: Ascites presence: unspecified Qualified Code(s): K70.10 - Alcoholic hepatitis without ascites Is this a current diagnosis for this admission?: Yes Plan: Continue N-acetylcysteine and prednisone with GI prophylaxis. (2) Delirium tremens Is this a current diagnosis for this admission?: Yes Plan: Continue Ativan, thiamine for Warneke's prophylaxis (3) Hypokalemia Is this a current diagnosis for this admission?: Yes Plan: Replacing in IV fluids (4) Rhabdomyolysis Is this a current diagnosis for this admission?: Yes Plan: Continue IV hydration (5) Alcoholic gastritis Is this a current diagnosis for this admission?: Yes Plan: Continue twice daily PPI monitor for bleeding with serial CBCs - Time Time Spent with patient: 15-24 minutes - Inpatient Certification Medical Necessity: Significant Comorbidiites Make Outpatient Treatment Too Risky , Need Close Monitoring Due to Risk of Patient Decompensation
[2017-05-26] MEDS ORDERED: LACTULOSE SYRUP 20 GM/30 ML UDCUP PO ONE (19:00)
[2017-05-26 19:04] LABS: HEMATOCRIT 32.8 % (37.9-51.0); HEMOGLOBIN 11.1 g/dL (13.5-17.0); MEAN CORPUSCULAR HEMOGLOBIN 32.5 pg (27.0-33.4); MEAN CORPUSCULAR HGB CONC 33.8 g/dL (32.0-36.0); MEAN CORPUSCULAR VOLUME 96 fl (80-97); PLATELET COUNT 177 10^3/uL (150-450); WHITE BLOOD COUNT 4.2 10^3/uL (4.0-10.5)
[2017-05-26 19:13] LABS: PROTHROMBIN TIME 13.5 SEC (11.4-15.4)
[2017-05-26 19:14] LABS: INTERNATIONAL RATION (INR) 0.96; PARTIAL THROMBOPLASTIN TIME 29.5 SEC (23.5-35.8)
[2017-05-27] MEDS: POTASSI CL 20 MEQ/1/2NS 1L 1000 ML IV PRN ×2 (00:32→11:39)
[2017-05-27] MEDS: LORAZEPAM INJ 2 MG/1 ML VIAL IV PRN ×3 (01:02→22:28)
[2017-05-27 05:40] LABS: INTERNATIONAL RATION (INR) 0.93; PROTHROMBIN TIME 13.1 SEC (11.4-15.4)
[2017-05-27 05:52] LABS: ALANINE AMINOTRANSFERASE 118 U/L (21-72); ALBUMIN 3.9 g/dL (3.5-5.0); ALKALINE PHOSPHATASE 184 U/L (38-126); ANION GAP 14 (5-19); ASPARTATE AMINO TRANSFERASE 227 U/L (17-59); BILIRUBIN,DIRECT 1.6 mg/dL (0.0-0.4); BILIRUBIN,TOTAL 2.3 mg/dL (0.2-1.3); BLOOD UREA NITROGEN 6 mg/dL (7-20); CALCIUM 9.7 mg/dL (8.4-10.2); CARBON DIOXIDE 20 mmol/L (22-30); CHLORIDE 110 mmol/L (98-107); CREATINE KINASE 255 U/L (55-170); GLUCOSE 119 mg/dL (75-110); POTASSIUM 4.1 mmol/L (3.6-5.0); SODIUM 144.4 mmol/L (137-145); TOTAL PROTEIN 7.4 g/dL (6.3-8.2)
--- NOTE | 2017-05-27 09:43 | PDOC PROGRESS REPORT ---
Subjective Progress Note for:: 05/27/17 Subjective:: Pt states that he rested well overnight. Nursing states that pt had no issues overnight. Reason For Visit: ALCOHOLIC HEPATITIS, D/TS, RHABDOMYOLYSIS Physical Exam Vital Signs: Temp Pulse Resp BP Pulse Ox 98.5 F 61 16 113/69 100 05/27/17 07:51 05/27/17 07:51 05/27/17 07:51 05/27/17 07:51 05/27/17 07:51 Intake & Output 05/26/17 05/27/17 05/28/17 06:59 06:59 06:59 Intake Total 2188 Output Total 1200 Balance 988 Weight 62.6 kg 67.4 kg General appearance: PRESENT: no acute distress, well-developed, well-nourished Head exam: PRESENT: atraumatic, normocephalic Eye exam: PRESENT: conjunctiva pink, EOMI. ABSENT: scleral icterus Ear exam: PRESENT: normal external ear exam Mouth exam: PRESENT: moist, tongue midline Neck exam: ABSENT: carotid bruit, JVD, lymphadenopathy, thyromegaly Respiratory exam: PRESENT: clear to auscultation dax. ABSENT: rales, rhonchi, wheezes Cardiovascular exam: PRESENT: RRR, tachycardia. ABSENT: diastolic murmur, rubs , systolic murmur Pulses: PRESENT: normal dorsalis pedis pul Vascular exam: PRESENT: normal capillary refill GI/Abdominal exam: PRESENT: normal bowel sounds, soft. ABSENT: distended, guarding, mass, organolmegaly, rebound, tenderness Rectal exam: PRESENT: deferred Extremities exam: PRESENT: full ROM. ABSENT: calf tenderness, clubbing, pedal edema Neurological exam: PRESENT: alert, awake, oriented to person, oriented to place , oriented to time, oriented to situation, CN II-XII grossly intact. ABSENT: motor sensory deficit Psychiatric exam: PRESENT: agitated, anxious Skin exam: PRESENT: dry, intact, warm. ABSENT: cyanosis, rash Results Laboratory Results: 05/26/17 18:40 05/27/17 05:13 05/26/17 05/26/17 05/27/17 18:40 18:40 05:13 WBC 4.2 RBC 3.40 L Hgb 11.1 L Hct 32.8 L MCV 96 MCH 32.5 MCHC 33.8 RDW 16.0 H Plt Count 177 Sodium 144.4 Potassium 4.1 Chloride 110 H Carbon Dioxide 20 L Anion Gap 14 BUN 6 L Creatinine 0.72 0.82 Est GFR ( Amer) > 60 > 60 Est GFR (Non-Af Amer) > 60 > 60 Glucose 119 H Calcium 9.7 Phosphorus 5.0 H Magnesium 1.4 L Total Bilirubin 2.3 H AST 227 H ALT 118 H Alkaline Phosphatase 184 H Ammonia Total Protein 7.4 Albumin 3.9 05/27/17 05:13 WBC RBC Hgb Hct MCV MCH MCHC RDW Plt Count Sodium Potassium Chloride Carbon Dioxide Anion Gap BUN Creatinine Est GFR ( Amer) Est GFR (Non-Af Amer) Glucose Calcium Phosphorus Magnesium Total Bilirubin AST ALT Alkaline Phosphatase Ammonia 95.6 H Total Protein Albumin 05/26/17 05/27/17 05/27/17 06:10 05:13 05:13 Creatine Kinase 532 H 255 H CK-MB (CK-2) 0.87 Assessment & Plan - Diagnosis (1) EtOH dependence Is this a current diagnosis for this admission?: Yes Plan: Will continue ETOH withdrawal protocol. Will continue multivitamins. (2) Dehydration Is this a current diagnosis for this admission?: Yes Plan: Will continue IVFs. (3) Alcoholic hepatitis Qualifiers: Ascites presence: unspecified Qualified Code(s): K70.10 - Alcoholic hepatitis without ascites Is this a current diagnosis for this admission?: Yes Plan: Encourage pt to stop ETOH dependence. (4) Delirium tremens Is this a current diagnosis for this admission?: Yes Plan: Secondary to ETOH withdrawal: Improving. Will continue to monitor. (5) Rhabdomyolysis Is this a current diagnosis for this admission?: Yes Plan: Resolved. Will continue to monitor. (6) Alcoholic gastritis Is this a current diagnosis for this admission?: Yes Plan: Will continue PPI. (7) Hyperammonemia Is this a current diagnosis for this admission?: Yes Plan: Will continue Lactulose. (8) Hypomagnesemia Is this a current diagnosis for this admission?: Yes Plan: Will place pt on Magnesium replacement. - Time Time Spent with patient: 15-24 minutes
[2017-05-27] MEDS: PREDNISONE 20 MG TABLET PO SCH ×2 (10:26→17:32)
[2017-05-27] MEDS: PANTOPRAZOLE SODIUM 40 MG VIAL IV SCH ×2 (10:26→21:05)
[2017-05-27] MEDS: LACTULOSE SYRUP 20 GM/30 ML UDCUP PO SCH ×2 (10:26→17:32)
[2017-05-27] MEDS: DOCUSATE SODIUM 100 MG CAPSULE PO SCH ×2 (10:27→17:32)
[2017-05-27] MEDS: MAGNESIUM SULFATE/D5W 1 GM/100 ML RTUPB IV SCH ×2 (10:27→11:39)
[2017-05-27] MEDS: THIAMINE HCL 100 MG, FOLIC ACID 1 MG in NORMAL SALINE 250 ML IV SCH (11:50)
[2017-05-28] MEDS: POTASSI CL 20 MEQ/1/2NS 1L 1000 ML IV PRN ×2 (00:01→14:14)
[2017-05-28] MEDS: LORAZEPAM INJ 2 MG/1 ML VIAL IV PRN ×5 (00:51→20:20)
[2017-05-28] MEDS ORDERED: DIAZEPAM INJ 10 MG/2 ML DISP.SYRIN ONE (02:17)
[2017-05-28 06:59] LABS: ALANINE AMINOTRANSFERASE 127 U/L (21-72); ALKALINE PHOSPHATASE 171 U/L (38-126); ANION GAP 15 (5-19); ASPARTATE AMINO TRANSFERASE 207 U/L (17-59); BILIRUBIN,DIRECT 1.1 mg/dL (0.0-0.4); BILIRUBIN,TOTAL 1.8 mg/dL (0.2-1.3); BLOOD UREA NITROGEN 9 mg/dL (7-20); CALCIUM 9.7 mg/dL (8.4-10.2); CARBON DIOXIDE 21 mmol/L (22-30); CHLORIDE 108 mmol/L (98-107); GLUCOSE 108 mg/dL (75-110); POTASSIUM 4.2 mmol/L (3.6-5.0); SODIUM 143.7 mmol/L (137-145); TOTAL PROTEIN 7.1 g/dL (6.3-8.2)
[2017-05-28] MEDS: DIAZEPAM INJ 10 MG/2 ML DISP.SYRIN IV PRN ×3 (08:06→23:21)
[2017-05-28] MEDS: DOCUSATE SODIUM 100 MG CAPSULE PO SCH ×2 (09:46→17:17)
[2017-05-28] MEDS: PANTOPRAZOLE SODIUM 40 MG VIAL IV SCH ×2 (09:46→22:41)
[2017-05-28] MEDS: LACTULOSE SYRUP 20 GM/30 ML UDCUP PO SCH ×2 (09:47→17:17)
[2017-05-28] MEDS: PREDNISONE 20 MG TABLET PO SCH (09:47)
--- NOTE | 2017-05-28 09:52 | PDOC CONSULTATION ---
Consultation Consult Date: 05/28/17 Attending physician:: GERBER SRIVASTAVA Consult reason:: alcoholic hepatitis History of Present Illness Admission Date/PCP: 05/25/17 22:07 History of Present Illness: patient admitted several days ago, patient appeared to have LFT's consistent with alcoholic hepatitis Bilirubin was elevated and has trended down patient also had abnormal transaminases this is also trending down patient was in DT's that appeared to have resolved no abdominal pain should be able to be discharged since LFT's are on the down trend would maybe want to draw hepatitis panel, while patient is here will need to abstain from excessive alcohol use although since he is incarcerated recently, not sure why his LFT's was so elevated patient may need ultrasound if not done less likely to be due to biliary obstruction patient could have elevated AST and ALT due to Rhabo as well however since all trending down, patient could likely be discharged if tolerating a diet Past Medical History Cardiac Medical History: Reports: None Pulmonary Medical History: Reports: Asthma EENT Medical History: Reports: None Neurological Medical History: Reports: None Endocrine Medical History: Reports: None Renal/ Medical History: Reports: None Malignancy Medical History: Reports: None GI Medical History: Reports: Other - Alcoholic gastritis Musculoskeltal Medical History: Reports: None Skin Medical History: Reports: None Psychiatric Medical History: Reports: Alcohol Dependency Denies: Depression Traumatic Medical History: Reports: None Hematology: Reports: None Infectious Medical History: Reports: None Past Surgical History Past Surgical History: Reports: None Social History Lives with: Other - [facility] Smoking Status: Unknown if Ever Smoked Frequency of Alcohol Use: Heavy - Advance Directive Resuscitation Status: Full Code Family History Family History: None - Unobtainable Parental Family History Reviewed: Yes Children Family History Reviewed: Unknown Sibling(s) Family History Reviewed.: Unknown Medication/Allergy Home Medications: Chlordiazepoxide HCl [Librium 25 mg Capsule] 25 mg PO TID 05/26/17 Clonidine HCl [Catapres 0.1 mg Tablet] 0.1 mg PO Q6HP PRN 05/26/17 Folic Acid [Folvite 1 mg Tablet] 1 mg PO DAILY 05/26/17 Multivitamin [Tab-A-Ele (Multiple Vitamin) Tablet] 1 tab PO DAILY 05/26/17 Ondansetron HCl [Zofran 4 mg Tablet] 4 mg PO BIDP PRN 05/26/17 Thiamine HCl [Thiamine 100 mg Tablet] 100 mg PO DAILY 05/26/17 Allergies/Adverse Reactions: No Known Allergies Allergy (Verified 05/25/17 18:44) Review of Systems Constitutional: ABSENT: fever(s), headache(s), night sweats, weakness Eyes: ABSENT: visual disturbances Ears: ABSENT: hearing changes Nose, Mouth, and Throat: ABSENT: mouth pain, sore throat Cardiovascular: ABSENT: edema, orthropnea, palpitations Respiratory: ABSENT: dyspnea, hemoptysis Gastrointestinal: ABSENT: diarrhea, dysphagia, nausea, vomiting Genitourinary: ABSENT: dysuria, hematuria Musculoskeletal: ABSENT: deformity Neurological: ABSENT: syncope, tingling, tremor(s), vertigo Endocrine: ABSENT: polydipsia, polyphagia, polyuria Hematologic/Lymphatic: ABSENT: easy bruising Physical Exam Vital Signs: Temp Pulse Resp BP Pulse Ox 98.1 F 83 16 168/107 H 100 05/28/17 08:06 05/28/17 08:42 05/28/17 08:06 05/28/17 08:42 05/28/17 08:06 Intake & Output 05/27/17 05/28/17 05/29/17 06:59 06:59 06:59 Intake Total 2188 3370 Output Total 1200 350 Balance 988 3020 Weight 67.4 kg 68.7 kg General appearance: PRESENT: no acute distress, well-developed, well-nourished Head exam: PRESENT: atraumatic, normocephalic Eye exam: PRESENT: EOMI, PERRLA. ABSENT: nystagmus, periorbital swelling, scleral icterus Mouth exam: PRESENT: moist, neck supple Throat exam: ABSENT: tonsillar exudate, tonsillogmegaly Neck exam: ABSENT: meningismus, tenderness, thyromegaly Respiratory exam: PRESENT: unlabored. ABSENT: tachypnea, wheezes Cardiovascular exam: PRESENT: RRR, +S1, +S2 GI/Abdominal exam: PRESENT: soft. ABSENT: rebound, rigid, tenderness Extremities exam: ABSENT: joint swelling Neurological exam: PRESENT: oriented to time, oriented to situation, CN II-XII grossly intact Psychiatric exam: PRESENT: appropriate affect Focused psych exam: ABSENT: restlessness Skin exam: PRESENT: normal color. ABSENT: mottled, pallor, urticaria, vesicles Results Laboratory Results: 05/26/17 18:40 05/28/17 06:23 05/28/17 05/28/17 06:23 06:23 Sodium 143.7 Potassium 4.2 Chloride 108 H Carbon Dioxide 21 L Anion Gap 15 BUN 9 Creatinine 0.76 Est GFR ( Amer) > 60 Est GFR (Non-Af Amer) > 60 Glucose 108 Calcium 9.7 Total Bilirubin 1.8 H AST 207 H ALT 127 H Alkaline Phosphatase 171 H Ammonia 43.9 H Total Protein 7.1 Albumin 4.0 05/26/17 05/27/17 05/27/17 06:10 05:13 05:13 Creatine Kinase 532 H 255 H CK-MB (CK-2) 0.87 Assessment & Plan - Diagnosis (1) Alcoholic hepatitis Qualifiers: Ascites presence: unspecified Qualified Code(s): K70.10 - Alcoholic hepatitis without ascites Is this a current diagnosis for this admission?: Yes Plan: resolving with LFT having trended down since discharge (2) Delirium tremens Is this a current diagnosis for this admission?: Yes Plan: resolved, follow current protocol (3) EtOH dependence Is this a current diagnosis for this admission?: Yes Plan: counselling upon discharge, - Time Time Spent: 50 to 70 Minutes
[2017-05-28] MEDS: THIAMINE HCL 100 MG, FOLIC ACID 1 MG in NORMAL SALINE 250 ML IV SCH (11:06)
--- NOTE | 2017-05-28 11:07 | PDOC PROGRESS REPORT ---
Subjective Progress Note for:: 05/28/17 Subjective:: Nursing states that pt was agitated overnight. Nursing states that valium is not helping. Reason For Visit: ALCOHOLIC HEPATITIS, D/TS, RHABDOMYOLYSIS Physical Exam Vital Signs: Temp Pulse Resp BP Pulse Ox 98.1 F 83 16 168/107 H 100 05/28/17 08:06 05/28/17 08:42 05/28/17 08:06 05/28/17 08:42 05/28/17 08:06 Intake & Output 05/27/17 05/28/17 05/29/17 06:59 06:59 06:59 Intake Total 2188 3370 Output Total 1200 350 Balance 988 3020 Weight 67.4 kg 68.7 kg General appearance: PRESENT: disheveled, thin, well-nourished Head exam: PRESENT: atraumatic, normocephalic Eye exam: PRESENT: conjunctiva pink, EOMI. ABSENT: scleral icterus Ear exam: PRESENT: normal external ear exam Mouth exam: PRESENT: moist, tongue midline Neck exam: ABSENT: carotid bruit, JVD, lymphadenopathy, thyromegaly Respiratory exam: PRESENT: clear to auscultation dax. ABSENT: rales, rhonchi, wheezes Cardiovascular exam: PRESENT: tachycardia Pulses: PRESENT: normal dorsalis pedis pul Vascular exam: PRESENT: normal capillary refill GI/Abdominal exam: PRESENT: normal bowel sounds, soft. ABSENT: distended, guarding, mass, organolmegaly, rebound, tenderness Rectal exam: PRESENT: deferred Extremities exam: PRESENT: full ROM. ABSENT: calf tenderness, clubbing, pedal edema Musculoskeletal exam: PRESENT: full ROM Neurological exam: PRESENT: alert, awake, oriented to person, oriented to place , oriented to time, CN II-XII grossly intact. ABSENT: motor sensory deficit Psychiatric exam: PRESENT: agitated Skin exam: PRESENT: dry, intact, warm. ABSENT: cyanosis, rash Results Laboratory Results: 05/26/17 18:40 05/28/17 06:23 05/28/17 05/28/17 06:23 06:23 Sodium 143.7 Potassium 4.2 Chloride 108 H Carbon Dioxide 21 L Anion Gap 15 BUN 9 Creatinine 0.76 Est GFR ( Amer) > 60 Est GFR (Non-Af Amer) > 60 Glucose 108 Calcium 9.7 Total Bilirubin 1.8 H AST 207 H ALT 127 H Alkaline Phosphatase 171 H Ammonia 43.9 H Total Protein 7.1 Albumin 4.0 05/26/17 05/27/17 05/27/17 06:10 05:13 05:13 Creatine Kinase 532 H 255 H CK-MB (CK-2) 0.87 Assessment & Plan - Diagnosis (1) EtOH dependence Is this a current diagnosis for this admission?: Yes Plan: Will continue ETOH withdrawal protocol. Will continue multivitamins. Will place on klonopin scheduled. (2) Dehydration Is this a current diagnosis for this admission?: Yes Plan: Will continue IVFs. (3) Alcoholic hepatitis Qualifiers: Ascites presence: unspecified Qualified Code(s): K70.10 - Alcoholic hepatitis without ascites Is this a current diagnosis for this admission?: Yes Plan: Encourage pt to stop ETOH dependence. (4) Delirium tremens Is this a current diagnosis for this admission?: Yes Plan: Secondary to ETOH withdrawal: Improving. Will continue to monitor. (5) Rhabdomyolysis Is this a current diagnosis for this admission?: Yes Plan: Resolved. Will continue to monitor. (6) Alcoholic gastritis Is this a current diagnosis for this admission?: Yes Plan: Will continue PPI. (7) Hyperammonemia Is this a current diagnosis for this admission?: Yes Plan: Will continue Lactulose. Ammonia level improving. Will check ammonia level. (8) Hypomagnesemia Is this a current diagnosis for this admission?: Yes Plan: Will check Magnesium level in am. - Time Time Spent with patient: 15-24 minutes
[2017-05-28] MEDS: CLONAZEPAM 1 MG TABLET PO SCH ×2 (14:13→22:41)
[2017-05-28] MEDS ORDERED: HYDRALAZINE HCL INJ/PF 20 MG/1 ML SDV IV ONE (17:15)
[2017-05-29] MEDS: LORAZEPAM INJ 2 MG/1 ML VIAL IV PRN ×5 (00:30→21:06)
[2017-05-29] MEDS: POTASSI CL 20 MEQ/1/2NS 1L 1000 ML IV PRN ×2 (02:32→16:46)
[2017-05-29 06:38] LABS: HEMATOCRIT 32.1 % (37.9-51.0); HEMOGLOBIN 10.7 g/dL (13.5-17.0); MEAN CORPUSCULAR HEMOGLOBIN 32.4 pg (27.0-33.4); MEAN CORPUSCULAR HGB CONC 33.4 g/dL (32.0-36.0); MEAN CORPUSCULAR VOLUME 97 fl (80-97); PLATELET COUNT 203 10^3/uL (150-450); RED BLOOD COUNT 3.32 10^6/uL (4.35-5.55); RED CELL DISTRIBUTION WIDTH 15.9 % (11.5-14.0)
[2017-05-29 06:51] LABS: ALANINE AMINOTRANSFERASE 119 U/L (21-72); ALBUMIN 3.9 g/dL (3.5-5.0); ALKALINE PHOSPHATASE 138 U/L (38-126); ANION GAP 15 (5-19); ASPARTATE AMINO TRANSFERASE 158 U/L (17-59); BILIRUBIN,DIRECT 0.9 mg/dL (0.0-0.4); BILIRUBIN,TOTAL 1.8 mg/dL (0.2-1.3); BLOOD UREA NITROGEN 7 mg/dL (7-20); CALCIUM 9.7 mg/dL (8.4-10.2); CARBON DIOXIDE 23 mmol/L (22-30); CHLORIDE 106 mmol/L (98-107); GLUCOSE 74 mg/dL (75-110); POTASSIUM 3.4 mmol/L (3.6-5.0); SODIUM 143.9 mmol/L (137-145); TOTAL PROTEIN 7.1 g/dL (6.3-8.2)
[2017-05-29 07:08] LABS: WHITE BLOOD COUNT 9.6 10^3/uL (4.0-10.5)
[2017-05-29 07:22] LABS: ABSOLUTE LYMPHOCYTES# (MANUAL) 1.7 10^3/uL (0.5-4.7); ABSOLUTE NEUTROPHILS# (MANUAL) 6.9 10^3/uL (1.7-8.2); BAND NEUTROPHILS % (MANUAL) 1 % (3-5); BASOPHILS % (MANUAL) 0 % (0-2); EOSINOPHILS % (MANUAL) 0 % (0-6); LYMPHOCYTES % (MANUAL) 16 % (13-45); METAMYELOCYTES % (MANUAL) 1 % (0); MONOCYTES % (MANUAL) 10 % (3-13); SEGMENTED NEUTROPHILS % (MAN) 70 % (42-78); TOTAL CELLS COUNTED 100
[2017-05-29 07:24] LABS: ANISOCYTOSIS SLIGHT; HYPOCHROMASIA SLIGHT; PLATELET COMMENT ADEQUATE; POLYCHROMASIA 1+; STOMATOCYTES 1+; TOXIC GRANULATION SLIGHT; TOXIC VACUOLATION PRESENT
[2017-05-29] MEDS: CLONAZEPAM 1 MG TABLET PO SCH ×3 (07:52→23:18)
[2017-05-29] MEDS ORDERED: POTASSIUM CHLORIDE 20 MEQ/15 ML UDCUP PO ONE (08:00)
[2017-05-29] MEDS: CLONIDINE HCL 0.1 MG TABLET PO SCH ×2 (09:02→17:44)
[2017-05-29] MEDS: PANTOPRAZOLE SODIUM 40 MG VIAL IV SCH ×2 (09:02→23:18)
[2017-05-29] MEDS: DOCUSATE SODIUM 100 MG CAPSULE PO SCH ×2 (09:03→17:44)
[2017-05-29] MEDS: LACTULOSE SYRUP 20 GM/30 ML UDCUP PO SCH ×2 (09:03→17:44)
[2017-05-29] MEDS: THIAMINE HCL 100 MG, FOLIC ACID 1 MG in NORMAL SALINE 250 ML IV SCH (09:30)
--- NOTE | 2017-05-29 10:19 | PDOC PROGRESS REPORT ---
Subjective Progress Note for:: 05/29/17 Subjective:: Patient reports that he has history of schizophrenia this morning. Nursing reports the patient has been experiencing visual and and auditory hallucinations. Patient states that the auditory hallucinations are not giving him commands just talking to him. Patient states that he was diagnosed during adolescence. Patient states that he has not gone to take his potassium this morning or any other medications. Reason For Visit: ALCOHOLIC HEPATITIS, D/TS, RHABDOMYOLYSIS Physical Exam Vital Signs: Temp Pulse Resp BP Pulse Ox 97.4 F 71 16 145/116 H 100 05/29/17 07:52 05/29/17 07:52 05/29/17 07:52 05/29/17 07:52 05/29/17 07:52 Intake & Output 05/28/17 05/29/17 05/30/17 06:59 06:59 06:59 Intake Total 3370 1799 Output Total 350 1225 Balance 3020 574 Weight 68.7 kg 68.9 kg General appearance: PRESENT: disheveled, well-developed, well-nourished Head exam: PRESENT: atraumatic, normocephalic Eye exam: PRESENT: conjunctiva pink, EOMI. ABSENT: scleral icterus Ear exam: PRESENT: normal external ear exam Mouth exam: PRESENT: moist, tongue midline Neck exam: ABSENT: carotid bruit, JVD, lymphadenopathy, thyromegaly Respiratory exam: PRESENT: clear to auscultation dax. ABSENT: rales, rhonchi, wheezes Cardiovascular exam: PRESENT: RRR. ABSENT: diastolic murmur, rubs, systolic murmur Pulses: PRESENT: normal dorsalis pedis pul Vascular exam: PRESENT: normal capillary refill GI/Abdominal exam: PRESENT: normal bowel sounds, soft. ABSENT: distended, guarding, mass, organolmegaly, rebound, tenderness Rectal exam: PRESENT: deferred Extremities exam: PRESENT: full ROM. ABSENT: calf tenderness, clubbing, pedal edema Neurological exam: PRESENT: alert, awake, oriented to person, oriented to place Psychiatric exam: PRESENT: agitated, flat affect. ABSENT: homicidal ideation, suicidal ideation Skin exam: PRESENT: dry, intact, warm. ABSENT: cyanosis, rash Results Laboratory Results: 05/29/17 06:12 05/29/17 06:12 05/29/17 05/29/17 05/29/17 06:12 06:12 06:12 WBC 9.6 D RBC 3.32 L Hgb 10.7 L Hct 32.1 L MCV 97 MCH 32.4 MCHC 33.4 RDW 15.9 H Plt Count 203 Seg Neutrophils % Not Reportable Lymphocytes % Not Reportable Monocytes % Not Reportable Eosinophils % Not Reportable Basophils % Not Reportable Absolute Neutrophils Not Reportable Absolute Lymphocytes Not Reportable Absolute Monocytes Not Reportable Absolute Eosinophils Not Reportable Absolute Basophils Not Reportable Sodium 143.9 Potassium 3.4 L Chloride 106 Carbon Dioxide 23 Anion Gap 15 BUN 7 Creatinine 0.61 Est GFR ( Amer) > 60 Est GFR (Non-Af Amer) > 60 Glucose 74 L Calcium 9.7 Magnesium 1.7 Total Bilirubin 1.8 H AST 158 H ALT 119 H Alkaline Phosphatase 138 H Ammonia 31.8 Total Protein 7.1 Albumin 3.9 05/26/17 05/27/17 05/27/17 06:10 05:13 05:13 Creatine Kinase 532 H 255 H CK-MB (CK-2) 0.87 Assessment & Plan - Diagnosis (1) EtOH dependence Is this a current diagnosis for this admission?: Yes Plan: Will continue ETOH withdrawal protocol. Will continue multivitamins and klonopin. (2) Dehydration Is this a current diagnosis for this admission?: Yes Plan: Resolved. (3) Alcoholic hepatitis Qualifiers: Ascites presence: unspecified Qualified Code(s): K70.10 - Alcoholic hepatitis without ascites Is this a current diagnosis for this admission?: Yes Plan: Encourage pt to stop ETOH dependence. Enzymes trending downward. (4) Delirium tremens Is this a current diagnosis for this admission?: Yes Plan: Secondary to ETOH withdrawal: Resolving. Will continue to monitor. (5) Rhabdomyolysis Is this a current diagnosis for this admission?: Yes Plan: Resolved. Will continue to monitor. (6) Alcoholic gastritis Is this a current diagnosis for this admission?: Yes Plan: Will continue PPI. (7) Hyperammonemia Is this a current diagnosis for this admission?: Yes Plan: Resolved. (8) Hypomagnesemia Is this a current diagnosis for this admission?: Yes Plan: Will give magnesium replacement. Will check magnesium in a.m. (9) Anemia Is this a current diagnosis for this admission?: Yes Plan: Most likely Iron Deficiency: Will check anemia work up. (10) DVT prophylaxis Is this a current diagnosis for this admission?: Yes Plan: SCDs - Time Time Spent with patient: 25-34 minutes
[2017-05-29] MEDS: DIAZEPAM INJ 10 MG/2 ML DISP.SYRIN IV PRN (11:44)
[2017-05-29] MEDS: MAGNESIUM SULFATE/D5W 1 GM/100 ML RTUPB IV SCH ×2 (11:44→13:02)
[2017-05-30] MEDS: POTASSI CL 20 MEQ/1/2NS 1L 1000 ML IV PRN ×2 (01:58→16:44)
[2017-05-30] MEDS: DIAZEPAM INJ 10 MG/2 ML DISP.SYRIN IV PRN (01:58)
[2017-05-30] MEDS: LORAZEPAM INJ 2 MG/1 ML VIAL IV PRN ×3 (02:43→10:13)
[2017-05-30] MEDS: CLONAZEPAM 1 MG TABLET PO SCH ×3 (05:43→21:37)
[2017-05-30 06:33] LABS: ABSOLUTE RETICS # 0.157 10^6/uL (0.028-0.122); HEMATOCRIT 32.4 % (37.9-51.0); HEMOGLOBIN 10.9 g/dL (13.5-17.0); MEAN CORPUSCULAR HEMOGLOBIN 32.7 pg (27.0-33.4); MEAN CORPUSCULAR HGB CONC 33.6 g/dL (32.0-36.0); MEAN CORPUSCULAR VOLUME 97 fl (80-97); PLATELET COUNT 242 10^3/uL (150-450); RED BLOOD COUNT 3.32 10^6/uL (4.35-5.55); RED CELL DISTRIBUTION WIDTH 15.6 % (11.5-14.0); RETICULOCYTE COUNT (AUTO) 4.71 % (0.66-2.85); WHITE BLOOD COUNT 6.6 10^3/uL (4.0-10.5)
[2017-05-30 06:55] LABS: ALANINE AMINOTRANSFERASE 103 U/L (21-72); ALBUMIN 3.6 g/dL (3.5-5.0); ALKALINE PHOSPHATASE 132 U/L (38-126); ANION GAP 10 (5-19); ASPARTATE AMINO TRANSFERASE 119 U/L (17-59); BILIRUBIN,DIRECT 0.8 mg/dL (0.0-0.4); BILIRUBIN,TOTAL 1.4 mg/dL (0.2-1.3); BLOOD UREA NITROGEN 7 mg/dL (7-20); CALCIUM 9.5 mg/dL (8.4-10.2); CARBON DIOXIDE 26 mmol/L (22-30); CHLORIDE 107 mmol/L (98-107); GLUCOSE 71 mg/dL (75-110); IRON(TIBC) 59.6 ug/dL (49-181); POTASSIUM 4.1 mmol/L (3.6-5.0); SODIUM 142.7 mmol/L (137-145); TOTAL PROTEIN 6.7 g/dL (6.3-8.2)
[2017-05-30 07:09] LABS: ABSOLUTE LYMPHOCYTES# (MANUAL) 1.6 10^3/uL (0.5-4.7); ABSOLUTE MONOCYTES # (MANUAL) 0.7 10^3/uL (0.1-1.4); ABSOLUTE NEUTROPHILS# (MANUAL) 4.2 10^3/uL (1.7-8.2); BASOPHILS % (MANUAL) 0 % (0-2); EOSINOPHILS % (MANUAL) 2 % (0-6); LYMPHOCYTES % (MANUAL) 24 % (13-45); MONOCYTES % (MANUAL) 10 % (3-13); NUCLEATED RED BLOOD CELLS 1 /100 WBC (0); SEGMENTED NEUTROPHILS % (MAN) 64 % (42-78); TOTAL CELLS COUNTED 100
[2017-05-30 07:11] LABS: ANISOCYTOSIS 1+; PLATELET COMMENT ADEQUATE; POLYCHROMASIA 1+; TOXIC GRANULATION SLIGHT; TOXIC VACUOLATION PRESENT
[2017-05-30 07:52] LABS: FOLATE 8.39 ng/mL (>2.76)
[2017-05-30] MEDS: PANTOPRAZOLE SODIUM 40 MG VIAL IV SCH ×2 (10:11→21:32)
[2017-05-30] MEDS: DOCUSATE SODIUM 100 MG CAPSULE PO SCH ×2 (10:12→17:18)
[2017-05-30] MEDS: LACTULOSE SYRUP 20 GM/30 ML UDCUP PO SCH ×2 (10:12→17:18)
[2017-05-30] MEDS: CLONIDINE HCL 0.1 MG TABLET PO SCH ×2 (10:12→17:18)
[2017-05-30] MEDS: THIAMINE HCL 100 MG, FOLIC ACID 1 MG in NORMAL SALINE 250 ML IV SCH (10:12)
--- NOTE | 2017-05-30 13:42 | PDOC PROGRESS REPORT ---
Subjective Progress Note for:: 05/30/17 Subjective:: Nursing reports that patient urinated all over the floor. Recent states that he needed to urinate and he did not know what else to urinate but on the floor. Patient's officer is at bedside. Reason For Visit: ALCOHOLIC HEPATITIS, D/TS, RHABDOMYOLYSIS Physical Exam Vital Signs: Temp Pulse Resp BP Pulse Ox 98.3 F 95 14 111/65 100 05/30/17 12:11 05/30/17 12:11 05/30/17 12:11 05/30/17 12:11 05/30/17 12:11 Intake & Output 05/29/17 05/30/17 05/31/17 06:59 06:59 06:59 Intake Total 1799 3170 200 Output Total 1225 200 Balance 574 2970 200 Weight 68.9 kg 66.9 kg General appearance: PRESENT: disheveled, well-developed, well-nourished Head exam: PRESENT: atraumatic, normocephalic Eye exam: PRESENT: conjunctiva pink, EOMI. ABSENT: scleral icterus Ear exam: PRESENT: normal external ear exam Mouth exam: PRESENT: moist, tongue midline Neck exam: ABSENT: carotid bruit, JVD, lymphadenopathy, thyromegaly Respiratory exam: PRESENT: clear to auscultation dax. ABSENT: rales, rhonchi, wheezes Cardiovascular exam: PRESENT: RRR. ABSENT: diastolic murmur, rubs, systolic murmur Pulses: PRESENT: normal dorsalis pedis pul Vascular exam: PRESENT: normal capillary refill GI/Abdominal exam: PRESENT: normal bowel sounds, soft. ABSENT: distended, guarding, mass, organolmegaly, rebound, tenderness Rectal exam: PRESENT: deferred Extremities exam: PRESENT: full ROM. ABSENT: calf tenderness, clubbing, pedal edema Musculoskeletal exam: PRESENT: full ROM Neurological exam: PRESENT: alert, awake, oriented to person, oriented to place , oriented to time. ABSENT: motor sensory deficit Psychiatric exam: PRESENT: agitated, anxious Skin exam: PRESENT: dry, intact, warm. ABSENT: cyanosis, rash Results Laboratory Results: 05/30/17 06:11 05/30/17 06:11 05/30/17 05/30/17 05/30/17 06:11 06:11 06:11 WBC 6.6 RBC 3.32 L Hgb 10.9 L Hct 32.4 L MCV 97 MCH 32.7 MCHC 33.6 RDW 15.6 H Plt Count 242 Seg Neutrophils % Not Reportable Lymphocytes % Not Reportable Monocytes % Not Reportable Eosinophils % Not Reportable Basophils % Not Reportable Absolute Neutrophils Not Reportable Absolute Lymphocytes Not Reportable Absolute Monocytes Not Reportable Absolute Eosinophils Not Reportable Absolute Basophils Not Reportable Retic Count (auto) 4.71 H Absolute Retic 0.157 H Sodium 142.7 Potassium 4.1 Chloride 107 Carbon Dioxide 26 Anion Gap 10 BUN 7 Creatinine 0.66 Est GFR ( Amer) > 60 Est GFR (Non-Af Amer) > 60 Glucose 71 L Calcium 9.5 Magnesium 2.2 Iron 59.6 TIBC 211 L % Saturation 28 Ferritin 1060.00 H Total Bilirubin 1.4 H AST 119 H ALT 103 H Alkaline Phosphatase 132 H Ammonia 56.8 H Total Protein 6.7 Albumin 3.6 Vitamin B12 879.0 Folate 8.39 05/26/17 05/27/17 05/27/17 06:10 05:13 05:13 Creatine Kinase 532 H 255 H CK-MB (CK-2) 0.87 Assessment & Plan - Diagnosis (1) Schizophrenia Is this a current diagnosis for this admission?: Yes Plan: Pt states that he was diagnosed with Schizophrenia. Will have Mental Health evaluate pt. (2) EtOH dependence Is this a current diagnosis for this admission?: Yes Plan: Will continue ETOH withdrawal protocol. Will continue multivitamins and klonopin. (3) Dehydration Is this a current diagnosis for this admission?: Yes Plan: Resolved. (4) Alcoholic hepatitis Qualifiers: Ascites presence: unspecified Qualified Code(s): K70.10 - Alcoholic hepatitis without ascites Is this a current diagnosis for this admission?: Yes Plan: Encourage pt to stop ETOH dependence. Enzymes trending downward. (5) Delirium tremens Is this a current diagnosis for this admission?: Yes Plan: Secondary to ETOH withdrawal: Resolving. Will continue to monitor. (6) Rhabdomyolysis Is this a current diagnosis for this admission?: Yes Plan: Resolved. Will continue to monitor. (7) Alcoholic gastritis Is this a current diagnosis for this admission?: Yes Plan: Will continue PPI. (8) Hyperammonemia Is this a current diagnosis for this admission?: Yes Plan: Patient will continue to take lactulose (9) Hypomagnesemia Is this a current diagnosis for this admission?: Yes (10) Anemia Is this a current diagnosis for this admission?: Yes Plan: Multifactorial: Supportive care. (11) DVT prophylaxis Is this a current diagnosis for this admission?: Yes Plan: SCDs - Time Time Spent with patient: 15-24 minutes - Plan Summary Plan Summary: Concerned about patient's disc bulge due to concern about whether patient has schizophrenia. Patient reports that he has been diagnosed during childhood with schizophrenia.
[2017-05-31] MEDS: POTASSI CL 20 MEQ/1/2NS 1L 1000 ML IV PRN ×2 (04:55→19:52)
[2017-05-31 05:50] LABS: GLUCOSE 96 mg/dL (75-110); HEMATOCRIT 30.1 % (37.9-51.0); HEMOGLOBIN 10.1 g/dL (13.5-17.0); MEAN CORPUSCULAR HEMOGLOBIN 32.8 pg (27.0-33.4); MEAN CORPUSCULAR HGB CONC 33.7 g/dL (32.0-36.0); MEAN CORPUSCULAR VOLUME 97 fl (80-97); PLATELET COUNT 241 10^3/uL (150-450); RED BLOOD COUNT 3.09 10^6/uL (4.35-5.55); RED CELL DISTRIBUTION WIDTH 15.8 % (11.5-14.0); TOTAL PROTEIN 5.9 g/dL (6.3-8.2); WHITE BLOOD COUNT 5.9 10^3/uL (4.0-10.5)
[2017-05-31 05:52] LABS: ALANINE AMINOTRANSFERASE 94 U/L (21-72); ALBUMIN 3.2 g/dL (3.5-5.0); ALKALINE PHOSPHATASE 168 U/L (38-126); ANION GAP 8 (5-19); ASPARTATE AMINO TRANSFERASE 96 U/L (17-59); BILIRUBIN,DIRECT 0.6 mg/dL (0.0-0.4); BLOOD UREA NITROGEN 10 mg/dL (7-20); CALCIUM 9.2 mg/dL (8.4-10.2); CARBON DIOXIDE 24 mmol/L (22-30); CHLORIDE 108 mmol/L (98-107); POTASSIUM 4.6 mmol/L (3.6-5.0); SODIUM 140.3 mmol/L (137-145)
[2017-05-31] MEDS: CLONAZEPAM 1 MG TABLET PO SCH ×3 (06:01→21:18)
[2017-05-31 06:45] LABS: ABSOLUTE LYMPHOCYTES# (MANUAL) 1.8 10^3/uL (0.5-4.7); ABSOLUTE MONOCYTES # (MANUAL) 0.6 10^3/uL (0.1-1.4); ABSOLUTE NEUTROPHILS# (MANUAL) 3.1 10^3/uL (1.7-8.2); BASOPHILS % (MANUAL) 0 % (0-2); EOSINOPHILS % (MANUAL) 5 % (0-6); LYMPHOCYTES % (MANUAL) 31 % (13-45); MONOCYTES % (MANUAL) 11 % (3-13); MYELOCYTES % (MANUAL) 1 % (0); NUCLEATED RED BLOOD CELLS 1 /100 WBC (0); SEGMENTED NEUTROPHILS % (MAN) 52 % (42-78); TOTAL CELLS COUNTED 100
[2017-05-31 06:46] LABS: TOXIC VACUOLATION PRESENT
[2017-05-31 06:47] LABS: ANISOCYTOSIS SLIGHT; TEAR DROP CELLS SLIGHT
[2017-05-31 06:48] LABS: PLATELET COMMENT ADEQUATE; POLYCHROMASIA 1+; STOMATOCYTES 1+
[2017-05-31] MEDS: LORAZEPAM INJ 2 MG/1 ML VIAL IV PRN (08:46)
[2017-05-31] MEDS: PANTOPRAZOLE SODIUM 40 MG VIAL IV SCH ×2 (08:46→21:19)
[2017-05-31] MEDS: CLONIDINE HCL 0.1 MG TABLET PO SCH ×2 (08:46→21:18)
[2017-05-31] MEDS: LACTULOSE SYRUP 20 GM/30 ML UDCUP PO SCH ×2 (08:47→17:20)
[2017-05-31] MEDS: THIAMINE HCL 100 MG, FOLIC ACID 1 MG in NORMAL SALINE 250 ML IV SCH (08:52)
[2017-05-31] MEDS: DOCUSATE SODIUM 100 MG CAPSULE PO SCH ×2 (08:53→17:18)
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
--- NOTE | 2017-05-31 15:37 | PDOC PROGRESS REPORT ---
Subjective Progress Note for:: 05/31/17 Subjective:: Pt states that he is doing better. Pt states that he has not urinated on floor today. Nursing states that pt is doing better from a behavioral standpoint. Pt was seen by Psych on 05/31/2017. Reason For Visit: ALCOHOLIC HEPATITIS, D/TS, RHABDOMYOLYSIS Physical Exam Vital Signs: Temp Pulse Resp BP Pulse Ox 98.2 F 83 16 111/67 95 05/31/17 08:06 05/31/17 14:00 05/31/17 08:06 05/31/17 08:06 05/31/17 08:06 Intake & Output 05/30/17 05/31/17 06/01/17 06:59 06:59 06:59 Intake Total 3170 3494 Output Total 200 475 Balance 2970 3019 Weight 66.9 kg 62 kg General appearance: PRESENT: no acute distress, well-developed, well-nourished Head exam: PRESENT: atraumatic, normocephalic Eye exam: PRESENT: conjunctiva pink, EOMI. ABSENT: scleral icterus Ear exam: PRESENT: normal external ear exam Mouth exam: PRESENT: moist, tongue midline Neck exam: ABSENT: carotid bruit, JVD, lymphadenopathy, thyromegaly Respiratory exam: PRESENT: clear to auscultation dax. ABSENT: rales, rhonchi, wheezes Cardiovascular exam: PRESENT: RRR. ABSENT: diastolic murmur, rubs, systolic murmur Pulses: PRESENT: normal dorsalis pedis pul Vascular exam: PRESENT: normal capillary refill GI/Abdominal exam: PRESENT: normal bowel sounds, soft. ABSENT: distended, guarding, mass, organolmegaly, rebound, tenderness Rectal exam: PRESENT: deferred Extremities exam: PRESENT: full ROM. ABSENT: calf tenderness, clubbing, pedal edema Neurological exam: PRESENT: alert, awake, oriented to person, oriented to place , oriented to time, oriented to situation, CN II-XII grossly intact. ABSENT: motor sensory deficit Psychiatric exam: PRESENT: appropriate affect, normal mood. ABSENT: homicidal ideation, suicidal ideation Skin exam: PRESENT: dry, intact, warm. ABSENT: cyanosis, rash Results Laboratory Results: 05/31/17 05:08 05/31/17 05:08 05/31/17 05/31/17 05:08 05:08 WBC 5.9 RBC 3.09 L Hgb 10.1 L Hct 30.1 L MCV 97 MCH 32.8 MCHC 33.7 RDW 15.8 H Plt Count 241 Seg Neutrophils % Not Reportable Lymphocytes % Not Reportable Monocytes % Not Reportable Eosinophils % Not Reportable Basophils % Not Reportable Absolute Neutrophils Not Reportable Absolute Lymphocytes Not Reportable Absolute Monocytes Not Reportable Absolute Eosinophils Not Reportable Absolute Basophils Not Reportable Sodium 140.3 Potassium 4.6 Chloride 108 H Carbon Dioxide 24 Anion Gap 8 BUN 10 Creatinine 0.72 Est GFR ( Amer) > 60 Est GFR (Non-Af Amer) > 60 Glucose 96 Calcium 9.2 Total Bilirubin 1.0 AST 96 H ALT 94 H Alkaline Phosphatase 168 H Total Protein 5.9 L Albumin 3.2 L 05/26/17 05/27/17 05/27/17 06:10 05:13 05:13 Creatine Kinase 532 H 255 H CK-MB (CK-2) 0.87 Assessment & Plan - Diagnosis (1) Schizoaffective disorder Is this a current diagnosis for this admission?: Yes Plan: Per Psych. (2) EtOH dependence Is this a current diagnosis for this admission?: Yes Plan: Will continue ETOH withdrawal protocol. Will continue multivitamins and klonopin. (3) Dehydration Is this a current diagnosis for this admission?: Yes Plan: Resolved. (4) Alcoholic hepatitis Qualifiers: Ascites presence: unspecified Qualified Code(s): K70.10 - Alcoholic hepatitis without ascites Is this a current diagnosis for this admission?: Yes Plan: Encourage pt to stop ETOH dependence. Enzymes trending downward. (5) Delirium tremens Is this a current diagnosis for this admission?: Yes Plan: Secondary to ETOH withdrawal: Resolving. Will continue to monitor. (6) Rhabdomyolysis Is this a current diagnosis for this admission?: Yes Plan: Resolved. Will continue to monitor. (7) Alcoholic gastritis Is this a current diagnosis for this admission?: Yes Plan: Will continue PPI. (8) Hyperammonemia Is this a current diagnosis for this admission?: Yes Plan: Patient will continue to take lactulose (9) Hypomagnesemia Is this a current diagnosis for this admission?: Yes Plan: Resolved. (10) Anemia Is this a current diagnosis for this admission?: Yes Plan: Multifactorial: Supportive care. (11) DVT prophylaxis Is this a current diagnosis for this admission?: Yes Plan: SCDs
--- NOTE | 2017-05-31 17:51 | RADIOLOGY REPORT (SQ) ---
EXAM DESCRIPTION: CT HEAD WITHOUT COMPLETED DATE/TIME: 05/31/2017 4:40 pm REASON FOR STUDY: fall COMPARISON: 05/25/2017 TECHNIQUE: Axial images acquired through the brain without intravenous contrast. Images reviewed wi th bone, brain and subdural windows. Images stored on PACS. All CT scanners at this facility use dose modulation, iterative reconstruction, and/or weight based d osing when appropriate to reduce radiation dose to as low as reasonably achievable (ALARA). [facility]: Dose Right [facility]: CareDose [facility]: Dose Right [facility]: Teradose 4D [facility]: Smart BioAxone Therapeutic RADIATION DOSE: CT Rad equipment meets quality standard of care and radiation dose reduction techniq ues were employed. CTDIvol: 64.6 mGy. DLP: 1292 mGy-cm. mGy. LIMITATIONS: None. FINDINGS: VENTRICLES: Normal size and contour. CEREBRUM: No masses. No hemorrhage. No midline shift. No evidence for acute infarction. Normal gra y/white matter differentiation. No areas of low density in the white matter. CEREBELLUM: No masses. No hemorrhage. No alteration of density. No evidence for acute infarction. EXTRAAXIAL SPACES: No fluid collections. No masses. ORBITS AND GLOBE: No intra- or extraconal masses. Normal contour of globe without masses. CALVARIUM: No fracture. PARANASAL SINUSES: No fluid or mucosal thickening. SOFT TISSUES: No mass or hematoma. OTHER: No other significant finding. IMPRESSION: NORMAL BRAIN CT WITHOUT CONTRAST. EVIDENCE OF ACUTE STROKE: NO. COMMENT: Quality ID # [id number]: Final reports with documentation of one or more dose reduction techniques (e.g., Automated exposure control, adjustment of the mA and/or kV according to patient size, use of iterative reconstruction technique) TECHNICAL DOCUMENTATION: JOB ID: [id number] [employer]- All Rights Reserved Reading location - IP/workstation name: [email or web address]
[2017-06-01] MEDS: CLONAZEPAM 1 MG TABLET PO SCH (05:22)
[2017-06-01] MEDS: POTASSI CL 20 MEQ/1/2NS 1L 1000 ML IV PRN (06:17)
[2017-06-01 06:22] LABS: HEMATOCRIT 30.2 % (37.9-51.0); MEAN CORPUSCULAR HEMOGLOBIN 32.7 pg (27.0-33.4); MEAN CORPUSCULAR HGB CONC 33.1 g/dL (32.0-36.0); MEAN CORPUSCULAR VOLUME 99 fl (80-97); PLATELET COUNT 248 10^3/uL (150-450); RED BLOOD COUNT 3.06 10^6/uL (4.35-5.55); RED CELL DISTRIBUTION WIDTH 15.8 % (11.5-14.0); WHITE BLOOD COUNT 6.1 10^3/uL (4.0-10.5)
[2017-06-01 06:43] LABS: ALANINE AMINOTRANSFERASE 84 U/L (21-72); ALBUMIN 3.3 g/dL (3.5-5.0); ALKALINE PHOSPHATASE 175 U/L (38-126); ANION GAP 7 (5-19); ASPARTATE AMINO TRANSFERASE 81 U/L (17-59); BILIRUBIN,DIRECT 0.7 mg/dL (0.0-0.4); BILIRUBIN,TOTAL 0.9 mg/dL (0.2-1.3); BLOOD UREA NITROGEN 7 mg/dL (7-20); CALCIUM 9.3 mg/dL (8.4-10.2); CARBON DIOXIDE 23 mmol/L (22-30); CHLORIDE 110 mmol/L (98-107); GLUCOSE 84 mg/dL (75-110); POTASSIUM 4.7 mmol/L (3.6-5.0); SODIUM 140.4 mmol/L (137-145); TOTAL PROTEIN 6.5 g/dL (6.3-8.2)
[2017-06-01 06:49] LABS: ABSOLUTE LYMPHOCYTES# (MANUAL) 1.3 10^3/uL (0.5-4.7); ABSOLUTE NEUTROPHILS# (MANUAL) 3.4 10^3/uL (1.7-8.2); BASOPHILS % (MANUAL) 2 % (0-2); EOSINOPHILS % (MANUAL) 5 % (0-6); LYMPHOCYTES % (MANUAL) 17 % (13-45); MONOCYTES % (MANUAL) 16 % (3-13); SEGMENTED NEUTROPHILS % (MAN) 56 % (42-78); TOTAL CELLS COUNTED 100
[2017-06-01 06:50] LABS: ANISOCYTOSIS SLIGHT; PLATELET COMMENT ADEQUATE; POLYCHROMASIA SLIGHT; TOXIC VACUOLATION PRESENT
--- NOTE | 2017-06-01 10:12 | PDOC DISCHARGE SUMMARY ---
General - Admit/Disc Date/PCP Admission Date/Primary Care Provider: 05/25/17 22:07 Discharge Date: 06/01/17 - Discharge Diagnosis (1) Schizoaffective disorder Is this a current diagnosis for this admission?: Yes Summary: Psych has evaluated the pt and has cleared pt for discharge. (2) EtOH dependence Is this a current diagnosis for this admission?: Yes Summary: Patient was placed on benzos to help with EtOH withdrawal. Patient has done well and currently not requiring any additional Ativan. (3) Dehydration Is this a current diagnosis for this admission?: Yes Summary: Patient was given IV fluids for volume expansion. (4) Alcoholic hepatitis Is this a current diagnosis for this admission?: Yes Summary: His liver enzymes have been trending down. Patient told to discontinue EtOH use. (5) Delirium tremens Is this a current diagnosis for this admission?: Yes Summary: Resolved. (6) Rhabdomyolysis Is this a current diagnosis for this admission?: Yes Summary: Resolved. (7) Alcoholic gastritis Is this a current diagnosis for this admission?: Yes Summary: We will continue patient on PPI. (8) Hyperammonemia Is this a current diagnosis for this admission?: Yes Summary: Pt will continue on Lactulose. Pt found to have elevated ammonia level. (9) Hypomagnesemia Is this a current diagnosis for this admission?: Yes Summary: Resolved. (10) Anemia Is this a current diagnosis for this admission?: Yes Summary: Supportive care. Pt will need to follow up with GI once discharged from snf. - Additional Information Resuscitation Status: Full Code Discharge Diet: Cardiac Discharge Activity: Activity As Tolerated Prescriptions: Amlodipine Besylate [Norvasc 10 mg Tablet] 10 mg PO DAILY #30 tablet Lactulose [Cephulac Syrup 20 gm/30 ml Udcup] 20 gm PO TID #90 udc Home Medications: Folic Acid [Folvite 1 mg Tablet] 1 mg PO DAILY 05/26/17 Multivitamin [Tab-A-Ele (Multiple Vitamin) Tablet] 1 tab PO DAILY 05/26/17 Ondansetron HCl [Zofran 4 mg Tablet] 4 mg PO BIDP PRN 05/26/17 Thiamine HCl [Thiamine 100 mg Tablet] 100 mg PO DAILY 05/26/17 Amlodipine Besylate [Norvasc 10 mg Tablet] 10 mg PO DAILY #30 tablet 06/01/17 Chlordiazepoxide HCl [Librium 25 mg Capsule] 25 mg PO TIDP PRN #5 06/01/17 Lactulose [Cephulac Syrup 20 gm/30 ml Udcup] 20 gm PO TID #90 udc 06/01/17 History of Present Illness Patient complains of: Altered Mental Status History of Present Illness: VANESSA OSBORNE is a 27 year old male presented to hospital due to altered mental status. It was known that patient has history of alcohol dependency and at time of admission felt that presentation was consistent with alcohol withdrawal. Patient was placed on EtOH withdrawal protocol. Patient was found to have elevated LFTs and elevated CK. Patient was placed on IV fluids for volume expansion. Patient was also given multivitamin due to heavy EtOH abuse. Patient was also found to have elevated ammonia level and therefore was placed on lactulose. Patient's mentation did improve once ammonia level decreased. Patient will need to be consistent with taken lactulose to help keep mentation at patient's current baseline. Patient was evaluated by psychiatry due to him reporting history of schizophrenia. Psychiatry evaluated patient and family confirmed that patient does have schizoaffective disorder. Psychiatry did not make any further recommendations. Patient was noted to have electrolyte abnormalities that were addressed during this hospital stay. Patient was noted to have elevated blood pressure secondary to alcohol withdrawal however patient's blood pressure at time of discharge was well controlled with clonidine. Due to patient's blood pressure being low clonidine was discontinued and patient was placed on Norvasc 5 mg p.o. daily. Patient was also found to have gastritis due to EtOH abuse and therefore patient was placed on PPI. Patient will need a follow-up with GI for EGD as outpatient once discharged from snf. Patient will be discharged back to snf. Hospital Course Hospital Course: VANESSA OSBORNE is a 27 year old male presented to hospital due to altered mental status. It was known that patient has history of alcohol dependency and at time of admission felt that presentation was consistent with alcohol withdrawal. Patient was placed on EtOH withdrawal protocol. Patient was found to have elevated LFTs and elevated CK. Patient was placed on IV fluids for volume expansion. Patient was also given multivitamin due to heavy EtOH abuse. Patient was also found to have elevated ammonia level and therefore was placed on lactulose. Patient's mentation did improve once ammonia level decreased. Patient will need to be consistent with taken lactulose to help keep mentation at patient's current baseline. Patient was evaluated by psychiatry due to him reporting history of schizophrenia. Psychiatry evaluated patient and family confirmed that patient does have schizoaffective disorder. Psychiatry did not make any further recommendations. Patient was noted to have electrolyte abnormalities that were addressed during this hospital stay. Patient was noted to have elevated blood pressure secondary to alcohol withdrawal however patient's blood pressure at time of discharge was well controlled with clonidine. Due to patient's blood pressure being low clonidine was discontinued and patient was placed on Norvasc 5 mg p.o. daily. Patient was also found to have gastritis due to EtOH abuse and therefore patient was placed on PPI. Patient will need a follow-up with GI for EGD as outpatient once discharged from snf. Patient will be discharged back to snf. Physical Exam Vital Signs: Temp Pulse Resp BP Pulse Ox 98.3 F 85 16 90/52 L 100 06/01/17 07:49 06/01/17 07:49 06/01/17 07:49 06/01/17 07:49 06/01/17 07:49 Intake & Output 05/31/17 06/01/17 06/02/17 06:59 06:59 06:59 Intake Total 3494 1607 Output Total 475 2225 Balance 3019 -618 Weight 62 kg 71.8 kg General appearance: PRESENT: no acute distress, well-developed, well-nourished Head exam: PRESENT: atraumatic, normocephalic Eye exam: PRESENT: conjunctiva pink, EOMI. ABSENT: scleral icterus Ear exam: PRESENT: normal external ear exam Mouth exam: PRESENT: moist, tongue midline Neck exam: ABSENT: carotid bruit, JVD, lymphadenopathy, thyromegaly Respiratory exam: PRESENT: clear to auscultation dax. ABSENT: rales, rhonchi, wheezes Cardiovascular exam: PRESENT: RRR. ABSENT: diastolic murmur, rubs, systolic murmur Pulses: PRESENT: normal dorsalis pedis pul Vascular exam: PRESENT: normal capillary refill GI/Abdominal exam: PRESENT: normal bowel sounds, soft. ABSENT: distended, guarding, mass, organolmegaly, rebound, tenderness Rectal exam: PRESENT: deferred Extremities exam: PRESENT: full ROM. ABSENT: calf tenderness, clubbing, pedal edema Neurological exam: PRESENT: alert, awake, oriented to person, oriented to place , oriented to time, oriented to situation, CN II-XII grossly intact. ABSENT: motor sensory deficit Psychiatric exam: PRESENT: appropriate affect, normal mood. ABSENT: homicidal ideation, suicidal ideation Skin exam: PRESENT: dry, intact, warm. ABSENT: cyanosis, rash Results Laboratory Results: 06/01/17 05:29 06/01/17 05:29 05/30/17 06/01/17 06/01/17 06:11 05:29 05:29 WBC 6.1 RBC 3.06 L Hgb 10.0 L Hct 30.2 L MCV 99 H MCH 32.7 MCHC 33.1 RDW 15.8 H Plt Count 248 Seg Neutrophils % Not Reportable Lymphocytes % Not Reportable Monocytes % Not Reportable Eosinophils % Not Reportable Basophils % Not Reportable Absolute Neutrophils Not Reportable Absolute Lymphocytes Not Reportable Absolute Monocytes Not Reportable Absolute Eosinophils Not Reportable Absolute Basophils Not Reportable Sodium 140.4 Potassium 4.7 Chloride 110 H Carbon Dioxide 23 Anion Gap 7 BUN 7 Creatinine 0.80 Est GFR ( Amer) > 60 Est GFR (Non-Af Amer) > 60 Glucose 84 Calcium 9.3 Magnesium 1.8 Transferrin 139 L Total Bilirubin 0.9 AST 81 H ALT 84 H Alkaline Phosphatase 175 H Total Protein 6.5 Albumin 3.3 L 05/26/17 05/27/17 05/27/17 06:10 05:13 05:13 Creatine Kinase 532 H 255 H CK-MB (CK-2) 0.87 Impressions: Head CT 05/31/17 00:00 IMPRESSION: NORMAL BRAIN CT WITHOUT CONTRAST. EVIDENCE OF ACUTE STROKE: NO. Qualifiers - * PATEINT BEING DISCHARGED WITH ANY OF THE FOLLOWING DIAGNOSIS?: No Plan Time Spent: Greater than 30 Minutes
[2017-06-01] MEDS: LACTULOSE SYRUP 20 GM/30 ML UDCUP PO SCH (10:35)
[2017-06-01] MEDS: DOCUSATE SODIUM 100 MG CAPSULE PO SCH (10:36)
[2017-06-01] MEDS: CLONIDINE HCL 0.1 MG TABLET PO SCH (10:36)
[2017-06-01] MEDS: THIAMINE HCL 100 MG, FOLIC ACID 1 MG in NORMAL SALINE 250 ML IV SCH (10:36)
[2017-06-01] MEDS ORDERED: INFLUENZA ADLT QUAD (36MOS+) 2017-18 VAC 0.5 ML SYR IM PRN (11:54)
[2017-06-01 11:59] VITALS: BP 113/75
== END 2017-06-01 13:10 | DRG 897 ==
LOC: ER 18:39 → EH 22:07 → EEVIPCON 22:07 → 3W 05-26 15:17
PROVIDERS: ADMIT Internal Medicine; ATTEND Internal Medicine
PROC: 3E0F73Z Introduction of Anti-inflammatory into Respiratory Tract, Via Natural or Artificial Opening (ICD-10-PCS; principal; 2017-05-26)
PROC: 3E0234Z Introduction of Serum, Toxoid and Vaccine into Muscle, Percutaneous Approach (ICD-10-PCS; 2017-06-01)
DX: F10.231 Alcohol dependence with withdrawal delirium (principal); M62.82 Rhabdomyolysis; E72.20 Disorder of urea cycle metabolism, unspecified; F25.9 Schizoaffective disorder, unspecified; E86.0 Dehydration; K70.10 Alcoholic hepatitis without ascites; K29.20 Alcoholic gastritis without bleeding; E83.42 Hypomagnesemia; J45.909 Unspecified asthma, uncomplicated; F17.210 Nicotine dependence, cigarettes, uncomplicated; E87.6 Hypokalemia; D50.9 Iron deficiency anemia, unspecified; Z78.1 Physical restraint status; Z23 Encounter for immunization
CPT/HCPCS: 36415; 70450; 80053; 82140; 82550; 82553; 82565; 82607; 82728; 82746; 83540; 83550; 83735; 84100; 84466; 85025; 85027; 85045; 85610; 85730; 90686; 99284; J0132; J0360; J1644; J2060; J3360; J3411; J3475; J3480; J3490; J7030; J7050; J7060; J7512; S0164

== ENCOUNTER 2020-03-20 09:15 | Emergency (ER) | payer MEDICAID, OTHER ==
--- NOTE | 2020-03-20 09:52 | ER Document Report ---
ED Allergic Reaction - General Chief Complaint: Allergic Reaction Stated Complaint: REACTION TO FOOD/NUMBNESS OF MOUTH Time Seen by Provider: 03/20/20 09:33 Mode of Arrival: Ambulatory Information source: Patient Notes: MY NOTES 30-year-old black male arrives by POV after an hour and a half ago prior to arrival he was eating some Halloween candy he had gotten from his [id number]. He has a 5-year-old son at the house. Patient reports he had some tingling to his tongue and began to have a panic attack with heart palpitations shortly after putting the popsicle in his mouth. He thinks his [id number] was trying to poison him. Patient reports he has never had symptoms like this in the past. His blood sugar fingerstick was 89 taken in room. Patient reports she usually gets 4 hours of sleep every night and because of his long work schedule.. 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 He reports he has a lot of sweating problems and feels tired often and takes because of this kratom which helps him retain some energy. Kratom is a derivative of Marshall tree and a contain stimulants Mitragynine and 7-hydroxymitragine. SNL TRAVEL OUTSIDE OF THE [place] IN LAST 30 DAYS: No - HPI Onset: Just prior to arrival Onset/Duration: Persistent Quality of pain: No pain, Sharp. denies: Achy, Burning, Cramping, Dull, Fullness, Pressure, Stabbing, Throbbing Severity: Moderate Pain Level: 2 Identified cause: Possibly Other exposure: Other - Candy chocolate lollipop on a stick Similar symptoms previously: No Recently seen / treated by doctor: No - Related Data Allergies/Adverse Reactions: No Known Allergies Allergy (Verified 03/20/20 09:32) Past Medical History - General Information source: Patient - Social History Smoking Status: Never Smoker Cigarette use (# per day): No Chew tobacco use (# tins/day): No Smoking Education Provided: No Frequency of alcohol use: None Drug Abuse: None Lives with: Family Family History: None - Unobtainable Patient has suicidal ideation: No Patient has homicidal ideation: No Pulmonary Medical History: Reports: Hx Asthma Renal/ Medical History: Denies: Hx Peritoneal Dialysis GI Medical History: Reports: Hx Gastritis, Hx Pancreatitis Psychiatric Medical History: Reports: Hx Schizophrenia Denies: Hx Depression - Immunizations Hx Diphtheria, Pertussis, Tetanus Vaccination: Yes Review of Systems - Review of Systems Constitutional: See HPI, Weakness EENT: No symptoms reported Cardiovascular: No symptoms reported Respiratory: No symptoms reported Gastrointestinal: No symptoms reported Genitourinary: No symptoms reported Male Genitourinary: No symptoms reported Musculoskeletal: No symptoms reported Skin: No symptoms reported Hematologic/Lymphatic: No symptoms reported Neurological/Psychological: See HPI, Other - Dizziness Physical Exam - Vital signs Vitals: Temp Pulse Resp BP Pulse Ox 98.3 F 88 16 134/81 H 99 03/20/20 09:21 03/20/20 09:21 03/20/20 09:21 03/20/20 09:21 03/20/20 09:21 Course - Vital Signs Vital signs: Temp Pulse Resp BP Pulse Ox 98.3 F 71 16 121/71 99 03/20/20 09:21 03/20/20 11:01 03/20/20 09:21 03/20/20 11:01 03/20/20 09:21 - Laboratory Results Result Diagrams: 03/20/20 10:07 03/20/20 10:07 Laboratory Results Interpreted: 03/20/20 03/20/20 10:07 10:07 Creatine Kinase 780 H Urine Protein 30 H Ur Leukocyte Esterase TRACE H Urine Ascorbic Acid 20 H Critical Laboratory Results Reviewed: No Critical Results Attending or Supervising Physician who Reviewed Labs: TATI SMILEY JR - Radiology Results Critical Radiology Results Reviewed: No Critical Results Attending or Supervising Physician who Reviewed Radiology: TATI SMILEY JR - EKG Interpretation by [place] EKG shows normal: Sinus rhythm Rate: Normal Rhythm: NSR - 80 bpm normal sinus rhythm no ST elevation no ST depression no T wave depression no T wave elevation axis within normal limits Discharge - Discharge Clinical Impression: Food allergy, Heart palpitations, on kratom stimulant otc UTI (urinary tract infection) Qualifiers: Urinary tract infection type: site unspecified Hematuria presence: without hematuria Qualified Code(s): N39.0 - Urinary tract infection, site not specified Condition: Stable Disposition: HOME, SELF-CARE Instructions: Urinary Tract Infection ([facility]) Additional Instructions: Follow-up with personal doctor return to ER as needed take medicines as directed encourage fluids you may want to avoid using your stimulating [id number] Kratom because it has some neurotoxins in it. Prescriptions: Ciprofloxacin HCl [Cipro 500 mg Tablet] 500 mg PO BID #20 tablet Forms: Return to Work
[2020-03-20 10:19] LABS: ABSOLUTE EOSINOPHILS # (AUTO) 0.1 10^3/uL (0.0-0.6); ABSOLUTE LYMPHOCYTES (AUTO) 2.1 10^3/uL (0.5-4.7); ABSOLUTE MONOCYTES (AUTO) 0.5 10^3/uL (0.1-1.4); ABSOLUTE NEUT (AUTO) 2.1 10^3/uL (1.7-8.2); BASOPHILS % (AUTO) 0.8 % (0-2); EOSINOPHILS % (AUTO) 2.4 % (0-6); HEMOGLOBIN 13.5 g/dL (13.5-17.0); LYMPHOCYTES % (AUTO) 42.5 % (13-45); MEAN CORPUSCULAR HGB CONC 33.9 g/dL (32.0-36.0); MEAN CORPUSCULAR VOLUME 80 fl (80-97); MONOCYTES % (AUTO) 10.3 % (3-13); PLATELET COUNT 246 10^3/uL (150-450); RED BLOOD COUNT 5.01 10^6/uL (4.35-5.55); RED CELL DISTRIBUTION WIDTH 13.7 % (11.5-14.0); TOTAL CELLS COUNTED % (AUTO) 100 %; WHITE BLOOD COUNT 4.8 10^3/uL (4.0-10.5)
[2020-03-20 10:32] LABS: AMORPHOUS SEDIMENT,URINE TRACE /HPF; APPEARANCE,URINE SLIGHTLY-CLOUDY; BILIRUBIN,URINE NEGATIVE (NEGATIVE); COLOR,URINE YELLOW; GLUCOSE, URINE NEGATIVE (NEGATIVE); KETONES,URINE NEGATIVE (NEGATIVE); LEUKOCYTE ESTERASE,URINE TRACE (NEGATIVE); NITRITE,URINE NEGATIVE (NEGATIVE); PROTEIN,URINE 30 mg/dL (NEGATIVE); URINE SPECIFIC GRAVITY 1.026; UROBILINOGEN,URINE NEGATIVE mg/dL (<2.0)
--- NOTE | 2020-03-20 10:36 | RADIOLOGY REPORT (SQ) ---
EXAM DESCRIPTION: CHEST SINGLE VIEW IMAGES COMPLETED DATE/TIME: 03/20/2020 10:26 am REASON FOR STUDY: palpatation COMPARISON: PA and lateral views of the chest from 11/11/2013. EXAM PARAMETERS: NUMBER OF VIEWS: One view. TECHNIQUE: An AP view of the chest was obtained. RADIATION DOSE: NA LIMITATIONS: None. FINDINGS: LUNGS AND PLEURA: No consolidation, pleural effusion or pneumothorax. MEDIASTINUM AND HILAR STRUCTURES: No mediastinal or hilar contour abnormality. HEART AND VASCULAR STRUCTURES: The cardiac silhouette and pulmonary vasculature are within normal kendall its. BONES: No acute findings. HARDWARE: None in the chest. OTHER: No other finding. IMPRESSION: No acute cardiopulmonary process. TECHNICAL DOCUMENTATION: JOB ID: [id number] 2010 [employer]- All Rights Reserved Reading location - IP/workstation name: [email or web address]
[2020-03-20 10:42] LABS: ALBUMIN 4.3 g/dL (3.5-5.0); ALKALINE PHOSPHATASE 77 U/L (38-126); ANION GAP 6 (5-19); ASPARTATE AMINO TRANSFERASE 30 U/L (17-59); BILIRUBIN,DIRECT 0.1 mg/dL (0.0-0.4); BILIRUBIN,TOTAL 0.4 mg/dL (0.2-1.3); BLOOD UREA NITROGEN 12 mg/dL (7-20); CALCIUM 9.2 mg/dL (8.4-10.2); CARBON DIOXIDE 29 mmol/L (22-30); CHLORIDE 105 mmol/L (98-107); CREATINE KINASE 780 U/L (55-170); GLUCOSE 93 mg/dL (75-110); POTASSIUM 4.3 mmol/L (3.6-5.0); TOTAL PROTEIN 7.2 g/dL (6.3-8.2)
[2020-03-20 10:52] LABS: URINE AMPHETAMINES SCREEN NEGATIVE; URINE BARBITURATES SCREEN NEGATIVE; URINE BENZODIAZEPINES SCREEN NEGATIVE; URINE COCAINE SCREEN NEGATIVE; URINE MARIJUANA (THC) SCREEN NEGATIVE; URINE METHADONE SCREEN NEGATIVE; URINE PHENCYCLIDINE SCREEN NEGATIVE
[2020-03-20 12:44] VITALS: BP 118/73
--- NOTE | 2020-03-20 18:18 | EKG REPORT ---
SEVERITY:- NORMAL ECG - SINUS RHYTHM : Confirmed by: Barbi Mandujano MD 20-Mar-2020 18:16:08
== END 2020-03-20 12:44 | disposition home or self-care (01) ==
LOC: ER 09:15
DX: T78.1XXA Other adverse food reactions, not elsewhere classified, initial encounter (principal); R20.2 Paresthesia of skin; R53.1 Weakness; R42 Dizziness and giddiness; F41.0 Panic disorder [episodic paroxysmal anxiety]; R00.2 Palpitations; N39.0 Urinary tract infection, site not specified; J45.909 Unspecified asthma, uncomplicated; Z56.3 Stressful work schedule; Z79.899 Other long term (current) drug therapy
CPT/HCPCS: 36415; 71045; 80053; 80307; 81001; 82550; 82962; 84484; 85025; 85379; 93005; 93010; 99285